=== PATIENT | female | born 1985 | race Caucasian/White ===

== ENCOUNTER 2025-03-29 17:58 | Emergency (ER) | payer OTHER, SELFPAY ==
[2025-03-29 18:11] VITALS: BP 130/91
[2025-03-29 18:36] LABS: Hematocrit 42.7 % (37.0-47.0); Hemoglobin 14.4 g/dL (12.0-16.0); Mean Corp Hgb Conc. 33.7 g/dL (33.0-37.0); Mean Corpuscular Volume 91.0 fL (81.0-99.0); Nucleated Red Blood Cells % 0 %; Platelet Count 413 10^3/uL (130-400); Red Cell Dist. Width 12.5 % (11.5-14.5)
[2025-03-29 18:59] LABS: HCG, Serum Qualitative Screen Negative
[2025-03-29 19:01] LABS: ALT (SGPT) 23 U/L (0-35); AST (SGOT) 17 U/L (14-36); Albumin 4.6 g/dl (3.5-5.0); Alkaline Phosphatase 156 U/L (38-126); Blood Urea Nitrogen 12 mg/dl (7-17); Calcium 9.6 mg/dl (8.4-10.2); Carbon Dioxide 24 mmol/L (22-30); Chloride 103 mmol/L (98-107); Glucose 140 mg/dl (70-99); Lipase 25 U/L (23-300); Potassium 4.3 mmol/L (3.5-5.1); Sodium 137 mmol/L (135-145); Total Protein 7.8 g/dl (6.3-8.2); eGFR > 60.00
--- NOTE | 2025-03-29 21:16 | ED.GENMED ---
History of Present Illness
<Celeste Paulino MD, Resident - Last Filed: 03/30/25 23:08>
General
Chief Complaint: Dizziness
Source: patient
Time Seen by Provider: 03/29/25 21:13
History of Present Illness
History of Present Illness:
40yo F without significant pmh who presents with subacute dizziness and n/v.
Pt reports that about 8 weeks ago she was diagnosed with a L ear infection. Sx were muffled hearing and sensation of fluid/pressure (less so pain in ear). When symptoms persisted for about 4 weeks, she was started on cefdinir. Had negative reaction,
switched to doxycycline. Doxycycline helped with sx somewhat. Finished 1 week course, sx recurred. Currently completing amoxicillin regimen, 3 days left of weeklong course. Feels it has been helping somewhat. Did not take abx today. Went on a plane
~3-4 weeks ago, which worsened pain in ear temporarily. Denies any fevers. She still feels the muffled sensation in L ear. L auricle/pinna are not tender, and she denies any L inner ear pain at this point.
Yesterday, she experienced an acute episode of painful, sharp, tingling across lower face/jaw bilaterally. This was not associated with any facial weakness. This was accompanied by diaphoresis. Self-resolved within 1 hr. Then, patient began to
experience dizziness/vertigo, which has persisted since then. Pt throws up whenever she moves; not specific to a certain type of movement or direction. She is unable to ambulate because she falls over to the side when she tries to walk. Does not
feel that room is spinning, she feels like her head is 'disconnected from body.' Her vision is blurry (cannot read), but denies diplopia. Has a headache, for which she took maxalt this am which helped somewhat. Her migraines typically do not have an
aura and only occur during her period. No personal or family hx of BPPV.
Past History
<Celeste Paulino MD, Resident - Last Filed: 03/30/25 23:08>
Past History
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
ED Past Surgical History: Gynecological (Ectopic ) and Other (Thyroid cyst removal)
Patient has exhibited threatening behavior?: No
Social History
Tobacco: Non-smoker
Alcohol: Occasional
Drug: None
Personal:
Living: with family
Employment: Employed
Review of Systems
<Celeste Paulino MD, Resident - Last Filed: 03/30/25 23:08>
Review of Systems
All Other Systems: ROS reviewed and negative except as documented in HPI and ROS
Phy Exam
<Celeste Paulino MD, Resident - Last Filed: 03/30/25 23:08>
General Physical Exam
General Presentation: moderate distress
General age: appears stated age
General Skin: warm and dry
General Mental: other (appears uncomfortable but able to answer Qs appropriately )
ENT Exam
Additional ENT: L ear otoscopy without visible bulging purulent TM
Course
<Celeste Paulino MD, Resident - Last Filed: 03/30/25 23:08>
Orders/Labs/Results
Orders:
Orders
03/29/25 18:15
Test Result ONCE
03/29/25 18:26
Complete Blood Count/With Diff Urgent
Comprehensive Metabolic Panel Urgent
HCG, Serum Qualitative Screen Urgent
Lipase Urgent
03/29/25 22:01
Diphenhydramine [Benadryl] 50 mg IM Q4HPRN PRN
03/29/25 22:03
Ondansetron HCl [Zofran] 4 mg PO Q8HPRN PRN
03/29/25 22:10
Diphenhydramine [Benadryl] 50 mg PO Q6HPRN PRN
03/29/25 22:45
CefTRIAXone [Rocephin] 1,000 mg IV NOW STA
Dexamethasone Sod Phosphate [Decadron] 10 mg IV NOW STA
Diphenhydramine [Benadryl] 25 mg IV NOW STA
Ondansetron Injectable [Zofran] 4 mg IV NOW STA
Abnormal Lab Results
03/29/25
18:26
WBC 11.4 H 10^3/uL
(4.8-10.8)
Plt Count 413 H 10^3/uL
(130-400)
Abs Immat Gran (auto) 0.1 H 10^3/uL
(0-0.05)
Absolute Neuts (auto) 9.4 H 10^3/uL
(1.4-6.5)
Immature Gran % 0.7 H %
(0-0.5)
Neutrophils % 82.6 H %
(42.2-75.2)
Lymphocytes % 12.6 L %
(20.5-51.1)
Glucose 140 H mg/dl
(70-99)
Alkaline Phosphatase 156 H U/L
(38-126)
03/29/25 18:26
03/29/25 18:26
Vital Signs
Initial and Last Documented VS:
Initial Vital Signs
Temp Pulse Resp BP Pulse Ox
98.4 F 78 16 130/91 98
03/29/25 18:11 03/29/25 18:11 03/29/25 18:11 03/29/25 18:11 03/29/25 18:11
Last Documented Vital Signs
Temp Pulse Resp BP Pulse Ox
98.4 F 75 16 128/85 97
03/29/25 18:11 03/29/25 23:45 03/29/25 23:45 03/29/25 23:00 03/29/25 23:45
<Arden Mcclellan DO - Last Filed: 03/29/25 23:07>
Orders/Labs/Results
Orders:
Orders
03/29/25 18:15
Test Result ONCE
03/29/25 18:26
Complete Blood Count/With Diff Urgent
Comprehensive Metabolic Panel Urgent
HCG, Serum Qualitative Screen Urgent
Lipase Urgent
03/29/25 22:01
Diphenhydramine [Benadryl] 50 mg IM Q4HPRN PRN
03/29/25 22:03
Ondansetron HCl [Zofran] 4 mg PO Q8HPRN PRN
03/29/25 22:10
Diphenhydramine [Benadryl] 50 mg PO Q6HPRN PRN
03/29/25 22:45
CefTRIAXone [Rocephin] 1,000 mg IV NOW STA
Dexamethasone Sod Phosphate [Decadron] 10 mg IV NOW STA
Diphenhydramine [Benadryl] 25 mg IV NOW STA
Ondansetron Injectable [Zofran] 4 mg IV NOW STA
Abnormal Lab Results
03/29/25
18:26
WBC 11.4 H 10^3/uL
(4.8-10.8)
Plt Count 413 H 10^3/uL
(130-400)
Abs Immat Gran (auto) 0.1 H 10^3/uL
(0-0.05)
Absolute Neuts (auto) 9.4 H 10^3/uL
(1.4-6.5)
Immature Gran % 0.7 H %
(0-0.5)
Neutrophils % 82.6 H %
(42.2-75.2)
Lymphocytes % 12.6 L %
(20.5-51.1)
Glucose 140 H mg/dl
(70-99)
Alkaline Phosphatase 156 H U/L
(38-126)
03/29/25 18:26
03/29/25 18:26
Vital Signs
Initial and Last Documented VS:
Initial Vital Signs
Temp Pulse Resp BP Pulse Ox
98.4 F 78 16 130/91 98
03/29/25 18:11 03/29/25 18:11 03/29/25 18:11 03/29/25 18:11 03/29/25 18:11
Last Documented Vital Signs
Temp Pulse Resp BP Pulse Ox
98.4 F 75 16 128/85 97
03/29/25 18:11 03/29/25 23:45 03/29/25 23:45 03/29/25 23:00 03/29/25 23:45
<Celeste Paulino MD, Resident - Last Filed: 03/30/25 23:08>
MDM/Problems Addressed
Differential Diagnosis Includes:
DDx: vestibular neuritis vs. meniere disease vs. otitis media w effusion vs. acute otitis media vs. BPPV
Most likely vestibular neuritis vs. otitis media with effusion. Not positional c/w BPPV, no pain c/w acute otitis media, no tinnitus or hearing loss c/w meniere.
Triggering potential prior ear infection may have triggered vestibular neuritis. Alternatively otitis media with effusion can cause vertigo and also takes ~12 weeks to self-resolve (& does not respond to abx, c/w patient trying 3 abx and having had
sx for 8 weeks). The patient's episode of lower face pain most likely c/w nerve pain in mandibular trigeminal nerve distribution, likely irritated by inflammation around ear near sensory root of mandibular branch of trigeminal nerve.
Unlikely to be central vertigo, given lack of motor/language sx, lack of diplopia, and lack of weakness (no focal neuro deficits); worsened by position change.
WBC elevatd slightly to 11.4 likely 2/2 inflammation rather than acute infection. Mildly elevated alk phos potentially c/w undiagnosed DM (glucose elevated 140). Hcg negative, r/o.
MDM/Problems Addressed:
Plan:
- Symptom management (for vestibular neuritis and/or vertigo): benadryl (25-50mg q4-6hr) & zofran (4mg q8-12hr)
- Will not extend abx course beyond current 3 days amox
- Typically watchful waiting for otitis media with effusion through 12 week yuan, with ENT consult if recurrent or worsening
- Refer for vestibular rehab outpatient
<Celeste Paulino MD, Resident - Last Filed: 03/30/25 23:08>
*Pulse Oximetry
SaO2: 98
Oxygen Mode of Delivery: Room air
Patient hypoxic: no
*Critical Care Note
Total Time (30-74mins, 75-104mins- exclusive of procedures): Not Applicable
<Celeste Paulino MD, Resident - Last Filed: 03/30/25 23:08>
Update Note
Update Note:
Started zofran 4mg q8hr PRN and benadryl 50mg q6hr PRN
ED Attending Note
<Celeste Paulino MD, Resident - Last Filed: 03/30/25 23:08>
-
Portions of this chart may have been created with voice recognition software.� Occasional wrong word or��sound alike� substitutions may have occurred due to the inherent limitations of voice recognition software.
<Arden Mcclellan, DO - Last Filed: 03/29/25 23:07>
ED Attending Note
Patient seen and examined by attending physician: Yes
I performed a history and physical exam of patient and discussed management with resident, I reviewed resident's note and agree with documented findings and plan of care.: Yes
ED Attending Note:
Seen with resident examined independently 40-year-old female presents with nausea vomiting is taking her second course of antibiotics for left otitis no symptoms while at rest symptoms are worse with movement no mastoid tenderness no rash no fever
on exam looks like her left TM is red and retracted with an effusion
Labs are noted will give IV steroids antiemetics dose of IV antibiotics consideration for nonurgent referral DVT
Discharge Plan
Departure
Patient Disposition: Home (Routine Discharge)
Date of Disposition: 03/29/25
Time of Disposition: 23:27
Patient with high blood pressure during this ER visit?: No
Discharge Problem:
Vomiting, Ear infection
Instructions: Dizziness
Prescriptions:
New
methylprednisolone [Medrol (Shay)] 4 mg tablets,dose pack
See Rx Instructions .ROUTE .COMPLEX Qty: 21 0RF
Rx Instructions:
for 6 days
ondansetron 4 mg tablet,disintegrating
4 mg PO Q8H PRN (Reason: nausea and vomiting) Qty: 14 0RF
No Action
rizatriptan [Maxalt] 10 MG tablet
10 mg PO BID PRN (Reason: headache) Qty: 20 0RF
Referrals:
Guillaume España DO [Family Provider, Family Practice]
Matheus Nuñez MD [Active, Otology] - Next open appointment
Interventions
Interventions:
*Risk Screen - Suicide Last Done: 03/29/25 18:11
*General Assessment Last Done: 03/29/25 18:11
*Neglect/Abuse Screening Last Done: 03/29/25 18:11
*ED- Fall Risk Assessment Last Done: 03/29/25 23:37
*ED COVID-19 Vaccine History Last Done: 03/29/25 22:48
*ED Influenza Vaccine History Last Done: 03/29/25 22:48
*Nursing Disposition Last Done: 03/30/25 00:08
ED- Neurological Assessment Last Done: 03/29/25 22:01
ED Swallowing Screen Last Done: 03/29/25 23:36
Discharge Date and Time
Discharge Date/Time: 03/30/25 00:08
Print Language: ESTONIAN
[2025-03-29 22:00] VITALS: BP 131/85
[2025-03-29] MEDS: ZOFRAN 4 MG IV (22:56)
[2025-03-29] MEDS: DECADRON 10 MG IV (22:56)
[2025-03-29] MEDS: ROCEPHIN 1000 MG IV (22:56)
[2025-03-29] MEDS: BENADRYL 25 MG IV (22:57)
[2025-03-29 23:00] VITALS: BP 128/85
[2025-03-29 23:10] VITALS: BMI 33.7
== END 2025-03-30 00:08 | disposition home or self-care (01) ==
LOC: EMR 17:58
PROVIDERS: Emergency Medicine; EMERGENCY PHYSICIAN Emergency Medicine; FAMILY PHYSICIAN Family Medicine
DX: H66.92 Otitis media, unspecified, left ear (principal); R11.2 Nausea with vomiting, unspecified
CPT/HCPCS: 96374; 96375; 99284; 80053; 83690; 84703; 85025

== ENCOUNTER 2025-04-03 08:31 | Inpatient (IN) | payer OTHER, SELFPAY ==
[2025-03-31 21:04] VITALS: BP 154/115
[2025-03-31 21:49] LABS: Hematocrit 45.0 % (37.0-47.0); Hemoglobin 15.6 g/dL (12.0-16.0); Mean Corp Hgb Conc. 34.7 g/dL (33.0-37.0); Mean Corpuscular Volume 90.5 fL (81.0-99.0); Nucleated Red Blood Cells % 0 %; Platelet Count 520 10^3/uL (130-400); Red Cell Dist. Width 12.3 % (11.5-14.5)
[2025-03-31] MEDS: NSS 1000 IV (22:16)
[2025-03-31] MEDS: ZOFRAN 4 MG IV (22:16)
[2025-03-31 22:20] LABS: ALT (SGPT) 18 U/L (0-35); AST (SGOT) 14 U/L (14-36); Albumin 4.8 g/dl (3.5-5.0); Alkaline Phosphatase 145 U/L (38-126); Blood Urea Nitrogen 23 mg/dl (7-17); Calcium 10.2 mg/dl (8.4-10.2); Carbon Dioxide 26 mmol/L (22-30); Chloride 102 mmol/L (98-107); Glucose 104 mg/dl (70-99); Potassium 4.2 mmol/L (3.5-5.1); Sodium 136 mmol/L (135-145); Total Protein 8.5 g/dl (6.3-8.2); eGFR > 60.00
[2025-03-31 22:27] VITALS: BP 117/82
[2025-03-31 23:00] VITALS: BP 122/81
--- NOTE | 2025-03-31 23:17 | ED.GENMED ---
History of Present Illness
General
Chief Complaint: Dizziness
Source: patient and previous hospital records (ED visit 2 days ago for similar complaint)
Exam Limitations: none
Time Seen by Provider: 03/31/25 22:32
Nursing documentation reviewed up to this point in time: agreed with
History of Present Illness
History of Present Illness:
The patient is a 40-year-old female with a history of recurrent ear issues, who presented with persistent dizziness and headache. The ear pain started over a month ago and has persisted despite several rounds of antibiotics. The symptoms worsened
after air travel a month ago. The patient recently completed a course of amoxicillin and visited the emergency department 2 days ago where she developed abrupt onset of dizziness, nausea and vomiting the previous day. She received fluids and
medications, including steroids, which did not significantly improve her condition.
Currently, the patient reports improvement in ear pain and fullness but continues to experience severe dizziness, which intensifies with movement. She was started on a Medrol dose pack (methylprednisolone) and ondansetron, an antiemetic, with no
significant relief so far.
The patient also reports a frontal headache that developed recently. There is no fever reported. She has a history of migraines typically related to her menstrual cycle, for which she takes Maxalt, but describes this headache as different. She
admits to nasal congestion. [id number] medications have not been tried yet.
Laboratory studies from 2 days ago revealed mildly elevated white blood cell count of 11.4. Mildly elevated platelet count of 413. Normal H&H.
Chemistries were unremarkable save for mildly elevated alkaline phosphatase of 156. Random glucose 140. hCG is negative.
Past History
Past History
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 She got tested due to mother with history of factor V deficiency. She is maintained on
low-dose aspirin.) and Other (ectopic)
ED Past Surgical History: Gynecological (Ectopic ) and Other (Thyroid cyst removal)
Patient has exhibited threatening behavior?: No
Social History
Tobacco: Non-smoker
Alcohol: Occasional
Drug: None
Personal:
Living: with family
Employment: Employed
Family History
Family History: Other (Mother with history of factor V deficiency. Patient had routine testing and states she was positive-unclear if she is positive for factor V trait versus deficiency.)
Phy Exam
Physical Exam
Physical Exam:
GENERAL: 40-year-old overweight woman appears her stated age. Awake and alert, pleasant, overall appears in no acute distress. Mild nasal, stuffy voice is noted. Easily communicative. Afebrile. Initial BP elevated, upon recheck has normalized
122/81.
EYE: pupils equal and reactive. Extraocular muscles intact. Mild right lateral gaze nystagmus. Test of skew is negative. Head impulse negative. Anicteric
NECK: Supple, nontender, no meningismus, no significant adenopathy.
ENT: posterior pharynx is clear, oral mucosa is moist. TMs retracted bilaterally with minimal erythema superiorly. No appreciable effusion. Nares patent with mildly boggy turbinates without mucopus..
CARDIAC: Regular rate and rhythm. no murmur.
LUNGS: Clear breath sounds bilaterally, no acute respiratory distress, no wheezes/rales/rhonchi
ABDOMEN: Soft, nondistended, without focal tenderness, normoactive BS.
NEUROLOGICAL: Alert and oriented x3, no focal neuro deficits. Reproducible vertigo with rapid rotation of the head.
SKIN: Warm and dry, normal color, skin intact. No rash.
MUSCULOSKELETAL: No C/C/E. peripheral pulses are full and equal b/l. No palpable tenderness.
PSYCH: Normal and appropriate interaction.
Course
Orders/Labs/Results
Orders:
Orders
03/31/25 21:42
Complete Blood Count/With Diff Urgent
Comprehensive Metabolic Panel Urgent
03/31/25 22:13
Ondansetron Injectable [Zofran] 4 mg IV NOW STA
03/31/25 22:16
0.9% Sodium Chloride 1000 ml [Nss] 1,000 ml IV BOLUS
03/31/25 23:10
Meclizine [Antivert] 25 mg PO NOW STA
03/31/25 23:14
CT Head W/wo Iv Contrast Urgent
Comment:
Reason For Exam: intractable dizziness, N, headache
04/01/25 00:35
Meclizine [Antivert] 25 mg PO NOW STA
04/01/25 01:39
Ambulate Patient-Treatment ONCE
04/01/25 01:49
0.9% Sodium Chloride 1000 ml [Nss] 1,000 ml IV 125 mls/hr
Abnormal Lab Results
03/31/25
21:42
WBC 16.2 H 10^3/uL
(4.8-10.8)
MCH 31.4 H pg
(27.0-31.0)
Plt Count 520 H D 10^3/uL
(130-400)
Abs Immat Gran (auto) 0.1 H 10^3/uL
(0-0.05)
Absolute Neuts (auto) 12.9 H 10^3/uL
(1.4-6.5)
Absolute Monos (auto) 0.7 H 10^3/uL
(0.1-0.6)
Neutrophils % 79.8 H %
(42.2-75.2)
Lymphocytes % 15.4 L %
(20.5-51.1)
BUN 23 H mg/dl
(7-17)
Glucose 104 H mg/dl
(70-99)
Alkaline Phosphatase 145 H U/L
(38-126)
Total Protein 8.5 H g/dl
(6.3-8.2)
03/31/25 21:42
03/31/25 21:42
Vital Signs
Blood pressure: 122/81
Initial and Last Documented VS:
Initial Vital Signs
Temp Pulse Resp BP Pulse Ox
98.1 F 82 19 154/115 95
03/31/25 21:04 03/31/25 21:04 03/31/25 21:04 03/31/25 21:04 03/31/25 21:04
Last Documented Vital Signs
Temp Pulse Resp BP Pulse Ox
98.1 F 64 12 122/81 94
03/31/25 21:04 04/01/25 00:45 04/01/25 00:45 04/01/25 00:00 04/01/25 00:45
MDM/Problems Addressed
Differential Diagnosis Includes:
The Differential Diagnosis includes, in no particular order and is not limited to:
- Vestibular neuritis
- Labyrinthitis
- Migraine variant
- Sinusitis
- Chronic otitis media
- Meniere�s disease
- Tension-type headache
- Viral infection
- Allergic rhinitis
- TMJ dysfunction
MDM/Problems Addressed:
Acute, persistent dizziness with nausea and vomiting that began 3 days ago.
Chronic otitis media that began 2 months ago.
Overall nontoxic in appearance. Afebrile.
Thus far no improvement with IV along with oral steroids.
Otitis media has improved, appears to have resolved and on exam note of bilateral eustachian tube dysfunction with TM retractions but no evidence of significant effusion nor otitis media.
She does have a mild nasal, stuffy voice and admits to some nasal congestion, concern for an element of chronic sinusitis exacerbating/cause for dizziness, cause for vestibular neuritis.
She does complain of a frontal headache, albeit denies severe pain, headache is different from her typical migraines and thus to consider migraine variant as cause for dizziness. Other consideration is mass lesion.
Will check CT of the head.
Labs show uptrend in white blood cell count likely related to IV and oral steroids. There is also note of uptrend in platelet count.
Mild prerenal azotemia with normal electrolytes.
Alkaline phosphatase 145, trending down.
Feeling improved after IV fluids and an IV dose of Zofran.
Will give an oral dose of Antivert and check CT of the head.
Chronic conditions affecting care:
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
*Radiology
Radiology exam reviewed: radiology read reviewed
*Pulse Oximetry
SaO2: 95
Oxygen Mode of Delivery: Room air
Patient hypoxic: no
*Planning Intern Interpretation
Rate: normal
Interpretation: normal
Rhythm: sinus
*Critical Care Note
Total Time (30-74mins, 75-104mins- exclusive of procedures): Not Applicable
Update Note
Update Note:
01:55
Despite IV fluids, Zofran, 2 doses of Antivert, patient continues with significant vertiginous symptoms most noted when attempting to stand. Upon standing she promptly loses her balance, lists to the left with accompanying nausea.
Due to intractable vertigo accompanied with intractable nausea and vomiting, severe unsteadiness upon standing, patient will require acute hospitalization for further evaluation, continued IV fluids.
ED Attending Note
-
Portions of this chart may have been created with voice recognition software.� Occasional wrong word or��sound alike� substitutions may have occurred due to the inherent limitations of voice recognition software.
Discharge Plan
Departure
Patient Disposition: Admit
Date of Disposition: 04/01/25
Time of Disposition: 01:56
Admit to: Med/Surg
Admit to doctor: [facility]
Presentation/result/management discussed w/ accepting MD/DO: Hospitalist
Condition: Fair
Discharge Problem:
Intractable vertigo, Acute onset of severe vertigo
Prescriptions:
No Action
rizatriptan [Maxalt] 10 MG tablet
10 mg PO BID PRN (Reason: headache) Qty: 20 0RF
methylprednisolone [Medrol (Shay)] 4 mg tablets,dose pack
See Rx Instructions .ROUTE .COMPLEX Qty: 21 0RF
Rx Instructions:
for 6 days
ondansetron 4 mg tablet,disintegrating
4 mg PO Q8H PRN (Reason: nausea and vomiting) Qty: 14 0RF
Referrals:
Guillaume España, DO [Family Provider, Family Practice]
Interventions
Interventions:
*Risk Screen - Suicide Last Done: 03/31/25 21:04
*General Assessment Last Done: 03/31/25 21:04
*Neglect/Abuse Screening Last Done: 03/31/25 21:04
*ED- Fall Risk Assessment Last Done: 04/01/25 00:54
*ED COVID-19 Vaccine History Last Done: 04/01/25 00:54
*ED Influenza Vaccine History Last Done: 04/01/25 00:54
ED- Neurological Assessment Last Done: 03/31/25 21:49
ED- Cardiac Assessment Last Done: 03/31/25 21:49
ED Swallowing Screen Last Done: 04/01/25 00:16
Discharge Date and Time
Print Language: LITHUANIAN
[2025-03-31] MEDS: ANTIVERT 25 MG PO (23:30)
[2025-04-01] VITALS (11 sets, daily range): BP systolic 112–170; BP diastolic 72–88; PULSE 88–96; BMI 33.9; BMI 36.4
[2025-04-01] MEDS: ANTIVERT 25 MG PO ×2 (00:49→08:22)
[2025-04-01] MEDS: NSS 1000 IV (01:50)
--- NOTE | 2025-04-01 03:17 | HPS.HSE ---
Family Physician
-
Family Physician: Guillaume España
Chief Complaint
-
Dizziness, N/V
History of Present Illness
Patient is a 40y F with PMH significant for menstrual migraines and Factor V Leiden genetics who presents to ED complaining of dizziness and nausea. Patient developed L ear pain / fullness about 8 weeks ago. She has been followed by her PCP
since that time and has been on cefdinir, doxycycline and Augmentin over that time. Patient states that her hearing is a bit 'muffled' in the L ear - but there is no further pain, sinus pressure, sore throat, etc.
She developed dizziness sensation on Saturday evening. She has had unsteady gait since that time with persistent nausea and multiple episodes of non-bloody emesis.
Patient denies any room spinning sensation. She has not fallen / injured herself and has not lost consciousness.
She was seen in the ED on Saturday, treated with meclizine and discharged with Medrol pack.
She states that her symptoms have not significantly changed since that time and she returns to the ED this evening for further evaluation.
Patient has persistent symptoms in the ED this evening despite medications. She notes that she falls towards the right each time she stands.
Medical History
Past Medical History
Past Medical History: Reports Other
Additional Past Medical History:
Migraine Headaches (menstrual)
Obesity
Anxiety / Depression
Factor V Leiden (? homo / heterozygous) - No personal history of VTE
Past Surgical History: Reports Other
Additional Past Surgical History:
Thyroid Cyst Excision
Ectopic
Social History
Tobacco: Non-smoker
Alcohol: Occasional
Drug: None
Family History
Family History: Other (Mother: Factor V Leiden / VTE)
Allergies / Home Medications
Allergies reflects when Allergies were last updated in [facility] [facility].
Home Medications with original date entered in [facility] [facility]
Allergy/Medication List:
Allergies
Allergy/AdvReac Type Severity Reaction Status Date / Time
ciprofloxacin (From Cipro) Allergy Unknown Verified 03/29/25 18:14
clindamycin Allergy Unknown Verified 03/29/25 18:14
codeine Allergy Unknown Verified 03/29/25 18:14
metronidazole (From Metrogel) Allergy Unknown Verified 03/29/25 18:14
morphine Allergy Unknown Verified 03/29/25 18:14
Penicillins Allergy Unknown Verified 03/29/25 18:14
Home Medications
methylprednisolone 4 mg tablets in a dose pack (Medrol (Shay)) See Rx Instructions PO .COMPLEX #21 ea 03/29/25
ondansetron 4 mg disintegrating tablet 4 mg PO Q8H PRN nausea and vomiting #14 tabs 03/29/25
aspirin 81 mg tablet 81 mg PO DAILY 04/01/25
escitalopram oxalate 10 mg tablet (Lexapro) 10 mg PO DAILY 04/01/25
Review of Systems
-
History Source: Patient
A 12 point ROS was completed and negative except as noted: Yes
Constitutional: Reports Fatigue; Denies Fever or Chills
EENT: Reports Other (decreased hearing on the L); Denies Sore Throat or Runny Nose
Respiratory: Denies Cough or Trouble Breathing
Cardiac: Denies Chest Pain or Palpitations
Abdomen/GI: Reports Nausea and Vomiting; Denies Abdominal Pain or Diarrhea
: Denies Dysuria or Frequency
Musculoskeletal: Denies Joint Pain or Edema
Neurological: Reports Dizzy; Denies Headache, Weakness or Numbness
Psych: Denies Depression or Anxiety
Physical Exam
Vital Signs
Vital Signs
Temp Pulse Resp BP Pulse Ox
98.1 F 71 10 122/84 95
03/31/25 21:04 04/01/25 02:30 04/01/25 01:54 04/01/25 02:00 04/01/25 02:30
Physical Exam
General: Other (40y F in mild distress due to nausea.)
HEENT: Moist mucous membranes, PERRLA and Other (L TM with some erythema compared to the R.)
Respiratory: Clear; No Wheezes, Rales or Rhonchi
Cardiac: S1/S2 and Regular Rhythm; No Murmur
GI: Soft, Non Tender, Non Distended and Normal Bowel Sounds
Musculoskeletal: No Clubbing, No Cyanosis and No Edema
Neuro: AO x 3 and Other (Ataxia / falls or leans towards R with standing or attempting to ambulate. Strength and sensation is intact / symmetric x 4 extremities.)
Laboratory Results
-
03/31/25 21:42
03/31/25 21:42
Laboratory Results
Total Bilirubin 0.5 mg/dl (0.2-1.3) 03/31/25 21:42
AST 14 U/L (14-36) 03/31/25 21:42
ALT 18 U/L (0-35) 03/31/25 21:42
Alkaline Phosphatase 145 U/L (38-126) H 03/31/25 21:42
Impression/Plan
-
A/P: Patient is a 40y F with PMH significant for migraine headaches who presents to ED complaining of persistent dizziness / ataxia and N/V.
Vertigo / Ataxia
Persistent Left Otitis Media
- Observe overnight for further evaluation and treatment.
- CT head in the ED was unremarkable.
- Supportive care with IVFs, antiemetics, meclizine, Valium, etc.
- PT / Vestibular evaluation.
- Hold further steroids for now.
- Observe off any additional abx (has had three separate courses over the past 8 weeks).
- Patient states that pain, sinus pressure, etc has resolved.
- ENT evaluation for additional recommendations.
Leukocytosis
- Likely due to steroids.
- Monitor for improvement off of further steroids.
Migraine Headaches
- Patient reports menstrual migraines. No current symptoms c/w her prior episodes.
- Monitor for any changes.
Factor V Leiden
DVT Prophylaxis
- No personal h/o VTE.
- Continue daily ASA.
- Lovenox for prophylaxis during hospital stay.
Code Status: Full
[2025-04-01] MEDS: TYLENOL 650 MG PO (04:49)
[2025-04-01] MEDS: ZOFRAN 4 MG IV ×2 (04:54→10:52)
--- NOTE | 2025-04-01 05:07 | PTCARENOTE ---
Pt recieved from ED via stretcher at 0400. Pt AAOx3, VSS, and able to ambulate into room with assistance. Pt complains of 7/10 SMITH and dizziness. See MAR. Pt receptive to room and call allen. Pt bed in lowest position and call allen within reach. Pt
educated on importance of call allen usage, pt relays understanding. Bed alarm placed and plugged in. Will continue with current plan of care.
[2025-04-01] MEDS: ASPIR LOW (ENTERIC COATED) 81 MG PO (07:41)
[2025-04-01] MEDS: LEXAPRO 10 MG PO (07:42)
[2025-04-01 08:06] LABS: Blood Urea Nitrogen 21 mg/dl (7-17); Calcium 9.0 mg/dl (8.4-10.2); Carbon Dioxide 28 mmol/L (22-30); Chloride 106 mmol/L (98-107); Estimated Creatinine Clearance 116 ml/min; Glucose 88 mg/dl (70-99); Hematocrit 42.0 % (37.0-47.0); Hemoglobin 13.8 g/dL (12.0-16.0); Mean Corp Hgb Conc. 32.9 g/dL (33.0-37.0); Mean Corpuscular Volume 95.2 fL (81.0-99.0); Platelet Count 400 10^3/uL (130-400); Red Cell Dist. Width 12.3 % (11.5-14.5); Sodium 141 mmol/L (135-145); eGFR > 60.00
[2025-04-01 08:23] LABS: Potassium 3.8 mmol/L (3.5-5.1)
--- NOTE | 2025-04-01 09:14 | W.CON.OTO ---
Otolaryngology Consult
Consult
Date/Time Consultation Requested: 04/01/2025 0330
Date/Time Consultation Performed: 04/01/2025 0818
Requesting Provider: Dr. Stock
Performing Provider: Dr. Gomez
Reason for Consultation: Vertigo
Chief Complaint
Vertigo
History of Present Illness
nAni is a 40yo woman who works for [employer] and presented to the ED twice within the past week with vertigo. She had been dealing with a left AOM over the past 8 weeks and had been treated with 3 courses of abx. She feels her otalgia and URI
sx are resolved now, but on Saturday03/28/25 she developed acute onset vertigo described as an intense dysequilibrium sensation with inability to stand and walk steadily. This is associated with right head/facial pain, nausea and vomiting. No room
spinning sensation. No hearing changes, tinnitus or otalgia. She was seen in ED on 03/29/25 for this and treated with meclizine and steroids. She took 2 doses of steroids. There was no improvement yet so she returned ovn and was admitted for further
management. CT head was negative for acute stroke. She is off abx now. ENT consulted for eval and management recommendations.
At time of eval this AM, she is still feeling nauseous. No new otologic symptoms. This has never happened before. No known migraine history. No prior major ear or heead or neck surgery. No recent known sick contacts or substantial travel.
Medical History
Past Medical History: None
Past Surgical History: None
Patient Allergies:
Allergies
Allergy/AdvReac Type Severity Reaction Status Date / Time
ciprofloxacin (From Cipro) Allergy Unknown Verified 03/29/25 18:14
clindamycin Allergy Unknown Verified 03/29/25 18:14
codeine Allergy Unknown Verified 03/29/25 18:14
metronidazole (From Metrogel) Allergy Unknown Verified 03/29/25 18:14
morphine Allergy Unknown Verified 03/29/25 18:14
Penicillins Allergy Unknown Verified 03/29/25 18:14
Home Medications / Current Medications:
�Medication �Instructions �Recorded
aspirin 81 mg tablet 81 mg PO DAILY 04/01/25
escitalopram oxalate 10 mg tablet 10 mg PO DAILY 04/01/25
(Lexapro)
Physical Exam
Vitals / Labs:
Vital Signs
Temp 98 F 04/01/25 07:00
Temp route: Oral 04/01/25 07:00
Pulse 62 04/01/25 07:00
Resp Rate 17 04/01/25 07:00
Blood pressure 149/72 04/01/25 07:00
Blood pressure extremity used: Left upper arm 04/01/25 07:00
Position: Lying 04/01/25 07:00
MAP (cuff-Pat Monitor) 92 04/01/25 03:00
SaO2 99 04/01/25 07:00
Oxygen Mode of Delivery Room air 04/01/25 07:00
Can the patient verbally communicate their pain? Yes 04/01/25 05:49
Pain scale rating: Asleep 04/01/25 05:49
Actual Weight 105.415 kg 04/01/25 04:07
Body Mass Index (BMI) 36.4 04/01/25 04:07
Lab Results
04/01/25 07:10
04/01/25 07:10
Exam:
Otolaryngology-specialty specific physical exam: NAD. Able to sit in bed and turn head left and right. External ears and EAC normal. B/l TMI. No effusion, normal landmarks. Hearing grossly intact.
Assessment / Plan
Anni is a 40yo woman with acute onset vertigo.
There is an unclear etiology at this time, but would favor vestibular neuritis vs vestibular migraine. I recommend an MRI brain and IACs w/ gadolinium for evaluation of the brain and inner ear structures. Would expect CN 8 enhancement with VN but
not VM. Would d/c meclizine as it should not be used for more than 3 consecutive days since onset. Continue with antiemetics. I recommend evaluation with Neurology for consideration of migraine treatment. Ca consider a diagnostic and therapeutic
trial of rescue sumatriptan. Agree with no abx and Vestibular therapy evaluation to help ensure she can ambulate safely. I recommend high dose steroids starting with 60mg prednisone PO once daily x 5 days, followed by a taper of 50mg x1d, 40mg x1d,
30mg x1d, 20mg x1d and 10mg x1d. I have left our information for her to contact us for followup as an outpatient within 1-2 weeks of hospital discharge.
Data Reviewed
Radiology: Image Personally Visualized and interpreted and Discussed with Patient
CT Scan: Image Personally Visualized and interpreted (No acute intracranial pathology.)
Lab Data: Labs Reviewed by me (WBC 10.5 down from 16 suggesting the leukocytosis may have been from steroids. Hgb 13.8.)
[2025-04-01] MEDS: LR 1000 IV ×2 (09:51→19:51)
--- NOTE | 2025-04-01 11:31 | CM ---
Patient seen bedside, initial assessment completed. Patient is a 40y F with PMH significant for menstrual migraines and Factor V Leiden genetics who presents to ED complaining of dizziness and nausea.
Patient resides w/ spouse and their 2 kids in a 2STH, 4 steps to enter from the front and 2 steps in the back. Patient is independent in all areas. No DME, no therapy hx.
Address, point of contact and insurance verified
PCP: Guillaume España
Pharmacy: [facility]
Patient admitted under obs services. OOBS form verbally reviewed, copy provided, copy on chart
PT evaluation ordered
Plan: Home, no needs
--- NOTE | 2025-04-01 11:34 | W.PN.HOSP.TC ---
Today's Communication/Plan
-
DC meclizine
Continue with IV fluids
Prednisone started
MRI of the brain
Assessment / Plan
Assessment / Plan
General: in bed, not in distress
HEENT: Moist mucous membranes, PERRLA
Respiratory: Clear; No Wheezes, Rales or Rhonchi
Cardiac: S1/S2 and Regular Rhythm; No Murmur
GI: Soft, Non Tender, Non Distended and Normal Bowel Sounds
Musculoskeletal: No Clubbing, No Cyanosis and No Edema
Neuro: AO x 3, EOMI, did not assess gait as feeling dizzy.
A/P: Patient is a 40y F with PMH significant for migraine headaches who presents to ED complaining of persistent dizziness / ataxia and N/V.
Acute onset vertigo / Ataxia likely secondary to vestibular neuritis versus vestibular migraine
- CT head in the ED was unremarkable.
- Supportive care with IVFs, antiemetics, Valium, etc.
- PT / Vestibular evaluation.
- Observe off any additional abx (has had three separate courses over the past 8 weeks).
- ENT correspondence to recommend an MRI of the brain with contrast and internal auditory canal visualization too.
- ENT recommends prednisone which is started. DC meclizine
- If with persistent nausea can consider Valium
- If no improvement may need neurology input
Leukocytosis
- Likely due to steroids.
- Resolved
Migraine Headaches
- Patient reports menstrual migraines. Having intermittent headaches
- Monitor for any changes.
Factor V Leiden
DVT Prophylaxis
- No personal h/o VTE.
- Continue daily ASA.
- Lovenox for prophylaxis during hospital stay.
Code Status: Full
Anticipated Discharge: 24 - 48 hours
Subjective/Interval History
-
Date of Service: April 01, 2025
states of feeling dizzy
intermittent nausea and vomiting
Objective Data
-
Labs:
Laboratory Results
04/01/25
07:10
WBC 10.5
Hgb 13.8
Hct 42.0
Plt Count 400 D
Sodium 141
Potassium 3.8
Chloride 106
Carbon Dioxide 28
BUN 21 H
Creatinine 0.8
Glucose 88
Calcium 9.0
Vital Signs:
Vital Signs
Temp Pulse Resp BP Pulse Ox
98 F 62 17 149/72 99
04/01/25 07:00 04/01/25 07:00 04/01/25 07:00 04/01/25 07:00 04/01/25 07:00
I&O
03/31/25 04/01/25 04/02/25
06:59 06:59 06:59
Intake Total 250 / 250
Balance 250 / 250
[2025-04-01] MEDS: DELTASONE 50 MG PO (12:01)
[2025-04-01] MEDS: LOVENOX 40 MG SC (18:03)
[2025-04-01] MEDS: VALIUM INJECTION 2 MG IV (19:52)
[2025-04-02] MEDS: LR 1000 IV (03:52)
[2025-04-02 07:00] VITALS: BP 132/80
[2025-04-02] MEDS: LEXAPRO 10 MG PO (08:14)
[2025-04-02] MEDS: ASPIR LOW (ENTERIC COATED) 81 MG PO (08:14)
[2025-04-02] MEDS: DELTASONE 50 MG PO (08:14)
--- NOTE | 2025-04-02 10:46 | W.PN.ENT ---
Today's Communication
-
patient and patient's hospitalist
Impression / Plan
-
40yo woman with acute onset vertigo. At this point, I favor vestibular neuritis over vestibular migraine based on symptoms and time course.
- MRI brain and IACs w/ gadolinium pending
- would continue steroids, antiemetics and supportive care
- continue PT
- Recommend Neurology evaluation
- Recommend Vestibular therapy eval
Please contact ENT with questions or concerns
Subjective Data
-
Patient seen earlier this morning. Feeling marginally better today. She has less nausea. Walking better but still leaning toward the right. No new otologic symptoms. No headache. Has some sound sensitivity.
Objective Data
-
Vital Signs
Temp Pulse Resp BP Pulse Ox
97.5 F 59 16 132/80 99
04/02/25 07:00 04/02/25 07:00 04/02/25 07:00 04/02/25 07:00 04/02/25 07:00
Intake & Output
04/01/25 04/02/25 04/03/25
06:59 06:59 06:59
Intake:
Oral fluids 240 / 240
IV fluids (Total) 250 / 250 1500 / 1500
Other:
Number of approximated MODERATE 1
amounts of urine
Lab Results
04/01/25 07:10
04/01/25 07:10
Calcium 9.0 mg/dl (8.4-10.2) 04/01/25 07:10
Total Bilirubin 0.5 mg/dl (0.2-1.3) 03/31/25 21:42
AST 14 U/L (14-36) 03/31/25 21:42
ALT 18 U/L (0-35) 03/31/25 21:42
Alkaline Phosphatase 145 U/L (38-126) H 03/31/25 21:42
Physical Exam
-
Otolaryngology-specialty specific physical exam: NAD, resting comfortably in bed. Ears and neck normal.
[2025-04-02] MEDS: VALIUM INJECTION 2 MG IV ×2 (11:04→17:57)
--- NOTE | 2025-04-02 11:26 | W.PN.HOSP.TC ---
Today's Communication/Plan
-
Prednisone/valium
stop IVF
neuro input
MRI brain pending
Assessment / Plan
Assessment / Plan
General: in bed, not in distress
HEENT: Moist mucous membranes, PERRLA
Respiratory: Clear; No Wheezes, Rales or Rhonchi
Cardiac: S1/S2 and Regular Rhythm; No Murmur
GI: Soft, Non Tender, Non Distended and Normal Bowel Sounds
Musculoskeletal: No Clubbing, No Cyanosis and No Edema
Neuro: AO x 3, EOMI, did not assess gait as feeling dizzy.
Psych-anxious
A/P: Patient is a 40y F with PMH significant for migraine headaches who presents to ED complaining of persistent dizziness / ataxia and N/V.
Acute onset vertigo / Ataxia likely secondary to vestibular neuritis versus vestibular migraine
- CT head in the ED was unremarkable.
- Supportive care with antiemetics, Valium, etc. IVF stopped as orthostatics negative. Monitor po intake
- PT / Vestibular evaluation.
- Observe off any additional abx (has had three separate courses over the past 8 weeks).
- ENT correspondence to recommend an MRI of the brain with contrast and internal auditory canal visualization too.
- ENT recommends prednisone 50mg taper regimen. DC meclizine
- valium prn
- Neurology input requested
Leukocytosis
- Likely due to steroids.
Migraine Headaches
- Patient reports menstrual migraines. Having intermittent headaches
- Monitor for any changes.
Factor V Leiden
DVT Prophylaxis
- No personal h/o VTE.
- Continue daily ASA.
- Lovenox for prophylaxis during hospital stay.
Code Status: Full
PT following
d/w with ENT
Anticipated Discharge: 24 - 48 hours
Subjective/Interval History
-
Date of Service: April 02, 2025
anxious and emotional this morning. crying earlier
remains with dizziness
worked with PT earlier today
Objective Data
-
Vital Signs:
Vital Signs
Temp Pulse Resp BP Pulse Ox
97.5 F 59 16 132/80 99
04/02/25 07:00 04/02/25 07:00 04/02/25 07:00 04/02/25 07:00 04/02/25 07:00
I&O
04/01/25 04/02/25 04/03/25
06:59 06:59 06:59
Intake Total 250 / 250 1740 / 1740
Balance 250 / 250 1740 / 1740
Data Reviewed
-
Total Time Spent with Patient (in minutes): 55
--- NOTE | 2025-04-02 11:30 | CON.NEURO4 ---
Addendum entered and electronically signed by Jaylen Sharpe MD 04/02/25 13:53:
Studies reviewed.
I have personally examined the patient. I reviewed and agree with the PINMAKER's Note.
My addenda:
Awake, alert, interactive. No acute distress.
Speech intact.
Follows 2-step requests w/o difficulty. No tremor.
Extra-ocular movements grossly intact.
Facial movements full and symmetric. Hearing intact to normal conversational volume.
Normal UE movements bilaterally.
Neck: full ROM.
Chest: no dyspnea
Heart: no JVD
Ext: (-) Clubbing, (-) Cyanosis, (-) Edema
IMPRESSIONS/RECOMMENDATIONS:
Abrupt onset of dizziness approximately 2 months after the onset of presumed left inner ear infection in a patient with menstrual migraine and current statements of aphasia, difficulty with sensory changes in bilateral upper and lower extremities as
well as a sense of respiratory abnormality. In a patient with factor V Leiden abnormality, the differential diagnosis includes acute ischemic stroke as well as multiple sclerosis and vestibular neuritis. Less likely, migraine with aura
Check MRI of brain with and without contrast as currently planned
Continue aspirin 81 mg with consideration of the addition of clopidogrel if there is evidence of acute ischemic stroke by MRI
Rehabilitation evaluations and treatment
Consider use of prochlorperazine for nausea and headache
Check blood work for potential metabolic causes for some of the patient's symptomatology
Agree with continuance of prednisone for symptomatic relief and diazepam also as symptomatic relief for now
D/W patient
All questions answered.
Will continue to follow patient.
Original Note:
Documented by User: Janeth Ronquillo NP 04/02/25 12:29
Consultation - Neurology 4
-
CONSULTING PHYSICIAN: Jaylen Sharpe MD
REFERRING PHYSICIAN: Hospitalists/Dr. Collado
DICTATED BY: CHRISTINE Garcia
DATE/TIME OF REQUEST: 04/02/25
DATE/TIME OF CONSULTATION: 04/02/25
Reason for Consultation: Dizziness
History of Present Illness:
This is a 40-year-old right-handed female who has presented to the hospital on 03/31/25 with report of dizziness, nausea, and vomiting. Patient has a history of migraine without aura associated with nausea, occasional vomiting, and photophobia.
typically associated with her menses. She takes rizatriptan for relief, prescribed by her PCP. She is not followed by a Neurologist.
Patient reports that two months ago her left ear hearing became muffled and felt as if water was in it. She reports taking three antibiotics, and finally about two weeks ago her symptoms resolved. Five days ago on 03/28/25 at night she reports a
sudden onset of a dizzy sensation which she describes as 'off balance.' She has been unable to walk normally due to falling to her right side. At that time she also notes developing diffuse facial tingling that resolved after 15 minutes. She also
reports having a headache, nausea, vomiting, and difficulty getting words out. She reports that her symptoms improve to only 10% severity when she lies down and are worse when she moves at all. Her symptoms were severe initially prompting her to go
to the ER for evaluation on 03/29/25. She was ultimately discharged home with a Medrol dose pack and ondansetron. She reports that she also took a rizatriptan that day. Her symptoms did not improve, and she reports vomiting daily and has been unable
to keep food down, prompting her to return to the ER on 03/31/25. CT head was obtained on 03/31/25 and is negative for any acute abnormalities. She reports ongoing symptoms but has some relief of nausea/vomiting with IV ondansetron. Her headache has
resolved. She notes photophobia but that she typically has that. She also reports feeling like she can't take deep breaths. Her right side still feels weak and she feels like she can't do fine motor tasks with her right hand. She is taking aspirin
81mg daily for Factor V Leiden.
Past Medical History: Factor V Leiden, migraine without aura, anxiety, depression
Surgical History: Thyroid cyst excision, ectopic
Family History: Reviewed and noncontributory.
Social History: Former smoker. Occasional alcohol. Denies illicit drug use.
Allergies: See below.
Home Medications: See below.
Review of Symptoms:
Patient denies any fever, headache, chest pain, shortness of breath, GI or symptoms.
�Per the HPI.�All systems are reviewed negative except above.
Physical Exam:
The patient is afebrile, abdomen is nondistended, breathing is unlabored, skin is warm and dry, no edema.
Neurologic Examination:
The patient is awake, alert and oriented x 3. She is able to follow commands and answer questions appropriately. There is no aphasia or dysarthria. On cranial nerve assessment, pupils are 3 mm bilateral, round and reactive to light and
accommodation. Visual ambrose are full. Extraocular movements are intact. No nystagmus. Facial sensations are intact and bilaterally symmetrical, there is no facial asymmetry. Hearing is intact bilaterally to normal conversation volume. Tongue palate
and uvula are midline. Sternocleidomastoid strengths are full bilaterally. Motor strengths are 5/5 bilateral upper and lower extremities on medical research [place] scale. There is no drift or involuntary movement noted. Deep tendon reflexes are 1+
bilateral upper and lower extremities and Babinski is absent bilaterally. There was no extinction noted on double simultaneous stimulation. Coordination is intact by finger to nose bilaterally. LUE satellites around RU.
Lab Results: See below.
Neuro Imaging:
1. CT Head 03/31/25: Normal pre and postcontrast CT of the head.
Differentials for the patient's presentation include:
1. Dizziness associated with headache, right-sided weakness, speech difficulty, and nausea/vomiting; uncertain etiology. Differential diagnosis includes a structural brain abnormality given Factor V Leiden, vertiginous migraine, structural ear
abnormality.
2. Recent ear infection.
Patient has the following risk factors for their symptoms: Hx migraines, Factor V Leiden
IV Tenecteplase/IAT candidacy: Not a candidate due to outside of the time window.
Recommendations:
-MRI brain/internal auditory canals w/ and w/o contrast pending.
-Continue home aspirin 81mg daily.
-Supportive care with prednisone, ondansetron.
-Checking blood work for metabolic abnormalities.
-Physical therapy evaluation.
-DVT prophylaxis.
Discussed patient care with: Dr. Sharpe, the patient
Vital Signs and Labs
-
Vital Signs and Labs:
Vital Signs
Temp Pulse Resp BP Pulse Ox
97.5 F 59 16 132/80 99
04/02/25 07:00 04/02/25 07:00 04/02/25 07:00 04/02/25 07:00 04/02/25 07:00
Lab Results
04/01/25 07:10
04/01/25 07:10
Sodium 141 mmol/L (135-145) 04/01/25 07:10
Potassium 3.8 mmol/L (3.5-5.1) 04/01/25 07:10
BUN 21 mg/dl (7-17) H 04/01/25 07:10
Glucose 88 mg/dl (70-99) 04/01/25 07:10
Calcium 9.0 mg/dl (8.4-10.2) 04/01/25 07:10
Medications
-
Active Medications
Generic Name Dose Route Start Last Admin
Trade Name Freq PRN Reason Stop Dose Admin
Acetaminophen 650 mg 04/01/25 04:05 04/01/25 04:49
Acetaminophen 325 Mg Tablet PO 04/29/25 04:04 650 mg
Q4HPRN PRN Administration
Mild Pain / Temp > 101
Aspirin 81 mg 04/01/25 08:00 04/02/25 08:14
Aspirin 81 Mg (Enteric Coated) Tablet PO 04/29/25 07:59 81 mg
DAILY CATALINO Administration
Diazepam 2 mg 04/01/25 04:05 04/02/25 11:04
Diazepam 10 Mg/2 Ml Inj IV 04/29/25 04:04 2 mg
Q6HPRN PRN Administration
Dizziness / nausea
Enoxaparin Sodium 40 mg 04/01/25 18:00 04/01/25 18:03
Enoxaparin Sodium 40 Mg/0.4 Ml Syringe SC 04/29/25 17:59 40 mg
QPM CATALINO Administration
Escitalopram Oxalate 10 mg 04/01/25 08:00 04/02/25 08:14
Escitalopram 10 Mg Tablet PO 04/29/25 07:59 10 mg
DAILY CATALINO Administration
Ondansetron HCl 4 mg 04/01/25 04:05 04/01/25 10:52
Ondansetron 4 Mg/2 Ml Vial IV 04/29/25 04:04 4 mg
Q6HPRN PRN Administration
nausea and vomiting
Prednisone 50 mg 04/01/25 12:00 04/02/25 08:14
Prednisone 50 Mg Tablet PO 04/05/25 08:01 50 mg
DAILY CATALINO Administration
Home Medications
�Medication �Instructions �Recorded
methylprednisolone 4 mg tablets in See Rx Instructions PO .COMPLEX 03/29/25
a dose pack (Medrol (Shay)) #21 ea
ondansetron 4 mg disintegrating 4 mg PO Q8H PRN nausea and 03/29/25
tablet vomiting #14 tabs
aspirin 81 mg tablet 81 mg PO DAILY Blood Clot 04/01/25
Prevention/Tx
escitalopram oxalate 10 mg tablet 10 mg PO DAILY Mental 04/01/25
(Lexapro) Health/Anxiety
NIH Stroke Score
Subsequent NIH Scale
Date of Subsequent NIH Scale: 04/02/25
Time of Subsequent NIH Scale: 12:00
NIH Stroke Score
Level of Consciousness: 0 - Alert
LOC Questions: 0-Answers both correctly
LOC Commands: 0-Performs both correctly
Best Horizontal Gaze: 0-Normal
Visual Ambrose: 0=Normal, no visual loss
Facial Palsy: 0=Normal, symmetrical
Motor - Right Arm: 0=No drift 10 seconds
Motor - Left Arm: 0=No drift 10 seconds
Motor - Right Le-No drift 5 seconds
Motor - Left Le-No drift 5 seconds
Limb Ataxia: 1-Present in one limb
Sensation: 0-Normal
Best Language: 0-No aphasia
Dysarthria: 0-Normal
Extinction and Inattention: 0-No abnormality
NIH Total Score:: 1
Modified Warren (mRS) Score
Modified Nanci Scale (mRS): Moderate disability. Requires some help, able to walk unassisted.
Score: 3
Alteplase Contraindication
Inclusion and Exclusion criteria reviewed: Yes
Reasons for NON-Tx with Thrombolytics ABSOLUTE Exclusions: Greater than 4.5 hrs from onset of sxs
IAT Contraindications: NIHSS < 6

Documented by User: Jaylen Sharpe MD 04/02/25 13:46
NIH Stroke Score
NIH Stroke Score
NIH Total Score:: 1
Modified Warren (mRS) Score
Score: 3
Past History
Past History
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 She got tested due to mother with history of factor V deficiency. She is maintained on
low-dose aspirin.) and Other (ectopic)
ED Past Surgical History: Gynecological (Ectopic ) and Other (Thyroid cyst removal)
Patient has exhibited threatening behavior?: No
Social History
Tobacco: Non-smoker
Alcohol: Occasional
Drug: None
Personal:
Living: with family
Employment: Employed
Family History
Family History: Other (Mother with history of factor V deficiency. Patient had routine testing and states she was positive-unclear if she is positive for factor V trait versus deficiency.)
Medications
-
Medications:
Generic Name Dose Route Start Last Admin
Trade Name Freq PRN Reason Stop Dose Admin
Acetaminophen 650 mg 04/01/25 04:05 04/01/25 04:49
Acetaminophen 325 Mg Tablet PO 04/29/25 04:04 650 mg
Q4HPRN PRN Administration
Mild Pain / Temp > 101
Aspirin 81 mg 04/01/25 08:00 04/02/25 08:14
Aspirin 81 Mg (Enteric Coated) Tablet PO 04/29/25 07:59 81 mg
DAILY CATALINO Administration
Diazepam 2 mg 04/01/25 04:05 04/02/25 11:04
Diazepam 10 Mg/2 Ml Inj IV 04/29/25 04:04 2 mg
Q6HPRN PRN Administration
Dizziness / nausea
Enoxaparin Sodium 40 mg 04/01/25 18:00 04/01/25 18:03
Enoxaparin Sodium 40 Mg/0.4 Ml Syringe SC 04/29/25 17:59 40 mg
QPM CATALINO Administration
Escitalopram Oxalate 10 mg 04/01/25 08:00 04/02/25 08:14
Escitalopram 10 Mg Tablet PO 04/29/25 07:59 10 mg
DAILY CATALINO Administration
Ondansetron HCl 4 mg 04/01/25 04:05 04/01/25 10:52
Ondansetron 4 Mg/2 Ml Vial IV 04/29/25 04:04 4 mg
Q6HPRN PRN Administration
nausea and vomiting
Prednisone 50 mg 04/01/25 12:00 04/02/25 08:14
Prednisone 50 Mg Tablet PO 04/05/25 08:01 50 mg
DAILY CATALINO Administration
[2025-04-02 13:20] LABS: ALT (SGPT) 29 U/L (0-35); AST (SGOT) 21 U/L (14-36); Albumin 4.2 g/dl (3.5-5.0); Alkaline Phosphatase 116 U/L (38-126); Blood Urea Nitrogen 13 mg/dl (7-17); Calcium 9.5 mg/dl (8.4-10.2); Carbon Dioxide 26 mmol/L (22-30); Chloride 103 mmol/L (98-107); Estimated Creatinine Clearance 116 ml/min; Glucose 137 mg/dl (70-99); Potassium 3.9 mmol/L (3.5-5.1); Sodium 137 mmol/L (135-145); Total Protein 7.4 g/dl (6.3-8.2); eGFR > 60.00
[2025-04-02 13:27] LABS: D-Dimer 0.28 ug/mlFEU (0.00-0.50)
[2025-04-02 13:30] LABS: C-Reactive Protein < 5.00 mg/L (0.0-10.00)
[2025-04-02 14:05] LABS: Ferritin 31.6 ng/ml (6.24-137)
[2025-04-02 14:36] LABS: Folate 4.8 ng/ml (2.76-20)
[2025-04-02] MEDS: PLAVIX 75 MG PO (15:42)
[2025-04-02 16:56] VITALS: BP 128/91
[2025-04-02] MEDS: LOVENOX 40 MG SC (17:14)
[2025-04-02] MEDS: LIPITOR 40 MG PO (17:14)
[2025-04-02 20:51] LABS: Vitamin B12 255 pg/ml (239-931)
[2025-04-02 22:36] VITALS: BP 112/65
[2025-04-03] VITALS (7 sets, daily range): BP systolic 113–130; BP diastolic 52–89; PULSE 56–103
[2025-04-03 07:44] LABS: VerifyNow Aspirin 494 ARU
[2025-04-03] MEDS: ASPIR LOW (ENTERIC COATED) 81 MG PO (08:17)
[2025-04-03] MEDS: DELTASONE 50 MG PO (08:17)
[2025-04-03] MEDS: PLAVIX 75 MG PO (08:17)
[2025-04-03] MEDS: LEXAPRO 10 MG PO (08:17)
[2025-04-03 08:27] LABS: HDL Cholesterol 23 mg/dl; LDL Cholesterol, Calculated 143 mg/dl; Very Low Density Lipoprotein 35 mg/dl (0-30)
[2025-04-03 08:29] LABS: Glycohemoglobin (HgbA1c) 5.6 % (4.0-5.9)
--- NOTE | 2025-04-03 11:31 | W.PN.HOSP.TC ---
Today's Communication/Plan
-
await neuro input
cont asa/plavix/statin
a1c pending
PT/OT/Speech
prednisone
dc valium
Assessment / Plan
Assessment / Plan
General: in bed, not in distress
HEENT: Moist mucous membranes, PERRLA
Respiratory: Clear; No Wheezes, Rales or Rhonchi
Cardiac: S1/S2 and Regular Rhythm; No Murmur
GI: Soft, Non Tender, Non Distended and Normal Bowel Sounds
Musculoskeletal: No Clubbing, No Cyanosis and No Edema
Neuro: AO x 3, EOMI, Non focal grossly intact, NIH 0
Psych-anxious
A/P: Patient is a 40y F with PMH significant for migraine headaches who presents to ED complaining of persistent dizziness / ataxia and N/V.
Acute onset vertigo / Ataxia likely secondary to vestibular neuritis vs. subacute R cerebellar infarction in setting of Factor V Leiden deficiency
- CT head in the ED was unremarkable. Orthostatic negative. IV fluid discontinued.
- Supportive care with antiemetics, Valium, etc. IVF stopped as orthostatics negative. Monitor po intake
- PT / Vestibular evaluation.
- MRI of the brain noted. CT angiogram negative for acute stenosis or obstruction
- ENT recommends prednisone 50mg taper regimen. DC meclizine and valium as pt stated made her lightheaded.
- valium prn
- Neurology input noted recommending to continue aspirin and Plavix
- aspirin assay noted-494.
- LDL elevated cholestrol. started on statin. A1C pending.
- ECHO noted.
- Await further neuro input. SOLOMON inpatient vs. OP?
- PT/OT/speech evaluation. Continue with stroke scale
Leukocytosis
- Likely due to steroids.
Migraine Headaches
- Patient reports menstrual migraines. Having intermittent headaches
- Monitor for any changes.
Factor V Leiden
DVT Prophylaxis
- No personal h/o VTE.
- Continue daily ASA.
- Lovenox for prophylaxis during hospital stay.
Code Status: Full
PT following
Anticipated Discharge: Within 24 hours
Subjective/Interval History
-
Date of Service: April 03, 2025
states of improvement in dizziness
Objective Data
-
Vital Signs:
Vital Signs
Temp Pulse Resp BP Pulse Ox
98.9 F 56 16 113/73 97
04/03/25 07:40 04/03/25 07:40 04/03/25 07:40 04/03/25 07:40 04/03/25 07:40
I&O
04/02/25 04/03/25 04/04/25
06:59 06:59 06:59
Intake Total 1740 / 1740 1460 / 1460
Balance 1740 / 1740 1460 / 1460
Data Reviewed
-
Total Time Spent with Patient (in minutes): 55
MRI: Report Reviewed by me, Discussed with Patient and Other (There is restricted diffusion within the superior medial right cerebellar hemisphere extending slightly into the right superior cerebellar peduncle. There is associated T2/FLAIR
hyperintense signal. Findings likely represent an acute/subacute infarction within the right superior cerebellar artery )
--- NOTE | 2025-04-03 12:17 | PTOTSP ---
Speech Therapy Evaluation:
Pt with acute risk factor of dysphagia including acute/subacute CVA, however oropharyngeal swallow appeared WFL at bedside. No overt s/sx of aspiration, WBC WNL, pt on room air, and passed 3oz swallow screen. Pt also presented with minimally reduced
rate of speech. Pt reported some difficulty getting words out. Pt would benefit from comprehensive language assessment in upcoming sessions.
Recommend:
1. Regular solids and thin liquids
2. Meds as tolerated
3. General aspiration precautions
4. No dysphagia tx warranted, DIGITAL ARTIST to follow for further language assessment
[2025-04-03] MEDS: LOVENOX 40 MG SC (17:55)
[2025-04-03] MEDS: LIPITOR 40 MG PO (17:55)
--- NOTE | 2025-04-03 19:40 | PTCARENOTE ---
Patient stood at each position for 4 minutes for both Orthostatic blood pressures at 0700 and 1900
[2025-04-04 03:00] VITALS: BP 122/74
[2025-04-04 07:00] VITALS: BP 125/81
[2025-04-04] MEDS: DELTASONE 50 MG PO (07:55)
[2025-04-04] MEDS: ASPIR LOW (ENTERIC COATED) 81 MG PO (07:55)
[2025-04-04] MEDS: LEXAPRO 10 MG PO (07:55)
[2025-04-04] MEDS: PLAVIX 75 MG PO (07:55)
[2025-04-04] MEDS: VITAMIN B-12 1000 MCG PO (07:55)
--- NOTE | 2025-04-04 10:11 | CON.CAR ---
Consultation
Consultation Request
Date/Time Consultation Requested: April 04, 2025
Date/Time Consultation Performed: April 04, 2025
Requesting Provider: Hospitalist
Performing Provider: Rashad
Reason for Consultation: Cerebellar stroke
Medical History
-
Chief Complaint: Dizziness vertigo
History of Present Illness:
40-year-old female who presents with a cerebellar stroke. Acute�subacute on imaging most notably on MRI and head and neck CTA. No large vessel occlusion or stenosis but in the region of her cerebellar stroke the arterial vessel looks diminutive or
occluded. She carries a history of factor V Leiden, her mother had venous clotting issues. The patient has not had prior blood clot in her history. No prior cardiac testing. Echocardiogram here demonstrates normal ejection fraction without any
evidence for intracardiac shunt. She denies chest pain pressure dyspnea dyspnea duration or palpitations
Past Medical History
Past Medical History: Other (Stroke)
Social History
Tobacco: Non-Smoker
Alcohol: None
Drug: None
Personal: Other
Living: With Family
Employment: Other
Family History
Family History: Reviewed & Not Pertinent
Allergies / Home Medications
Allergy/AdvReac Type Severity Reaction Status Date / Time
ciprofloxacin (From Cipro) Allergy Unknown Verified 03/29/25 18:14
clindamycin Allergy Unknown Verified 03/29/25 18:14
codeine Allergy Unknown Verified 03/29/25 18:14
metronidazole (From Metrogel) Allergy Unknown Verified 03/29/25 18:14
morphine Allergy Unknown Verified 03/29/25 18:14
Penicillins Allergy Unknown Verified 03/29/25 18:14
�Medication �Instructions �Recorded �Confirmed �Type
methylprednisolone 4 mg tablets in See Rx Instructions PO .COMPLEX 03/29/25 04/01/25 Rx
a dose pack (Medrol (Shay)) #21 ea
ondansetron 4 mg disintegrating 4 mg PO Q8H PRN nausea and 03/29/25 04/01/25 Rx
tablet vomiting #14 tabs
aspirin 81 mg tablet 81 mg PO DAILY Blood Clot 04/01/25 04/01/25 History
Prevention/Tx
escitalopram oxalate 10 mg tablet 10 mg PO DAILY Mental 04/01/25 04/01/25 History
(Lexapro) Health/Anxiety
Review of Systems
-
All other systems: Negative unless noted
Cardiac: No Symptoms
Physical Exam
Vital Signs
Temp Pulse Resp BP Pulse Ox
97.5 F 63 14 125/81 100
04/04/25 07:00 04/04/25 07:00 04/04/25 07:00 04/04/25 07:00 04/04/25 07:00
Lab Results
04/01/25 07:10
04/02/25 12:21
Physical Exam
General: Well Developed, Well Nourished and No Apparent Distress
HEENT: Normocephalic and Anicteric
Respiratory: Clear
Cardiac: S1/S2 and Regular Rhythm
Breast: Deferred by me
GI: Soft, Non Tender and Non Distended
Rectal: Deferred by Provider
Musculoskeletal: No Clubbing and No Cyanosis
Skin: Warm and Dry
Neuro: Awake, Alert and Oriented
Hematologic/Lymphatic: No Lymphadenopathy
Psych: Calm
Impression / Plan
-
Impression:
Cerebellar stroke
Factor V Leiden
Dizziness
Vertigo
Anxiety disorder
Recommendations:
I have no objection to performing SOLOMON to make sure she has no intracardiac shunt such as PFO although transthoracic echocardiogram did not reveal an intracardiac shunt
Given her factor V Leiden I would elicit opinions from neurology and/or hematology regarding DAPT therapy versus lifelong oral anticoagulation
Monitoring for atrial fibrillation can be formed either with ambulatory monitor or ILR implant
If the plan is for DAPT therapy we can perform ILR implant at time of SOLOMON which I placed on the schedule for April 05, 2025 and put in n.p.o. order
- If neurology and/or hematology recommends lifelong oral anticoagulation then ILR implant to monitor for atrial fibrillation would not alter therapy. As such if lifelong oral anticoagulation is recommended we can consider outpatient 14-day
ambulatory rhythm monitor instead
Patient is agreeable to plan and will monitor consultants input. Communicated with neurology and internal medicine team.
Data Reviewed
-
EKG: Tracing Personally Visualized and interpreted
Radiology: Image Personally Visualized and interpreted
Medical Tests (Nuc Med, Echo etc): Image Personally Visualized and interpreted
Labs: Labs Reviewed by me
Old Records: Reviewed
--- NOTE | 2025-04-04 11:15 | W.PN.NEURO.1 ---
Today's Communication / Plan
-
Hematology consult, pending decision on anticoagulation (apixiban 5 mg BID), if agreeable, start AC and hold aspirin/clopidogrel, otherwise continue aspirin/clopidogrel for now. Cardiology evaluation with consideration of SOLOMON.
Neuro Assessment/Plan
Assessment
Anni Gross is a 40 yo F with PMH Factor V Leiden mutation , migraines, initially presenting with acute dizziness, migrainous headache, facial dysasthesia, and ataxia, with gait leaning towards the right, found to have acute infarct in the right
cerebellum and middle cerebellar peduncle. 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 Stroke workup relatively unremarkable apart from elevated LDL, notably normal D-dimer.
Etiology of stroke remains idiopathic at the current time, however given history of Factor V Leiden mutation, venous paradoxical embolism though patent foramen ovale remains a possibility, although rare. Prior studies have been mixed in
recommendations for empiric initiation of anticoagulation in patients with Factor V mutation and stroke:
2020 AHA/ASA Guide for Stroke Prevention 'Thrombophilic states such as...factor V Leiden have been associated with higher stroke risk in selected populations without
stroke, especially among people with a PFO. The risk of stroke recurrence among stroke survivors with thrombophilic traits is less well established.�Furthermore, although individuals
who carry 1 of these disease traits may be considered hypercoagulable, the ideal treatment (antiplatelet versus anticoagulation) remains unknown'
Overall,unlike clear evidence for DOACS in the management of venous thromboemobli in patients with Factor V Leiden, management for secondary stroke prevention does not have robust data, and should be considered on a case by case basis. She
personally denies history of DVT or PE. Evidence of patent foramen ovale would significantly increase the likelihood of paradoxical embolism as a potential stroke mechanism and therefore would recommend SOLOMON for further evaluation to guide
management. Would appreciate additional recommendations from hematology team in terms of risk stratification with known mutation.
Alternative stroke mechanisms include cardioembolic from covert atrial fibrillation (consider ILR vs ambulatory umbrella repairer); unlikely atheroembolic. Other hypercoagulable state less likely given normal D-dimer although would appreciate
hematology input for further evaluation.
Plan
- hematology consult
- consideration of anticoagulation (and anticipated duration) for FVL and recent stroke.
- any further diagnostic testing that would assist in decision making (e.g. lower and upper extremity dopplers, repeat FVL or other hypercoagulability testing)
- if decision is made for start of anticoagulation
- would favor apixiban 5mg BID
- can start 04/04 and continue for at least until outpatient followup (duration per hematology)
- discontinue aspirin and clopidogrel unless indicated separately from a hematology and/or cardiology standpoint
- if started on anticoagulation and otherwise stable exam, can continue to monitor clinically; STAT head CT for any change in exam
- if decision is made to hold on anticoagulation
- continue aspirin 81 mg and clopidogrel 75 mg daily
- appreciate cardiology consultation, strong consideration of SOLOMON to evaluate for PFO, and either implantable loop recorder or ambulatory umbrella repairer, especially if duration of anticoagulation is unclear
- continue atorvastatin 40 mg
- BP goal normotension
- PT/OT/PMR
- migraine management
- counseled to avoid tobacco and oral contraceptive use, as well as long periods of sedentary behavior (e.g. flights)
- outpatient stroke clinic followup
Subjective/Objective
Subjective Data
Date of Service: April 04, 2025
- MRI with acute infarct in the right cerebellum and medial right cerebellar peduncle.
- Continued on aspirin 81 mg and clopidogrel 75 mg daily
- Patient reports near resolution of her symptoms, although notes mild right ataxia and diffuse facial parasthesia.
Objective Data
Vital Signs
Temp Pulse Resp BP Pulse Ox
36.4 C 63 14 125/81 100
04/04/25 07:00 04/04/25 07:00 04/04/25 07:00 04/04/25 07:00 04/04/25 07:00
Lab Results
04/01/25 07:10
04/02/25 12:21
Hgb A1c 5.6, D-dimer 0.28, ESR 2, LDL 143, TSH, B12 wnl
Sodium 137 mmol/L (135-145) 04/02/25 12:21
Potassium 3.9 mmol/L (3.5-5.1) 04/02/25 12:21
BUN 13 mg/dl (7-17) 04/02/25 12:21
Glucose 137 mg/dl (70-99) H 04/02/25 12:21
Calcium 9.5 mg/dl (8.4-10.2) 04/02/25 12:21
LDL Cholesterol, Calc 143 mg/dl 04/03/25 07:08
Vitamin B12 255 pg/ml (239-931) 04/02/25 12:21
Patient Allergies
ciprofloxacin (From Cipro) Allergy (Verified 03/29/25 18:14)
Unknown
clindamycin Allergy (Verified 03/29/25 18:14)
Unknown
codeine Allergy (Verified 03/29/25 18:14)
Unknown
metronidazole (From Metrogel) Allergy (Verified 03/29/25 18:14)
Unknown
morphine Allergy (Verified 03/29/25 18:14)
Unknown
Penicillins Allergy (Verified 03/29/25 18:14)
Unknown
MRI brain 04/02/25 - acute infarct in the right cerebellum, right middle cerebral peduncle
Review of Systems
-
All other systems: Reviewed and negative
Physical Exam
-
NIHSS 1 for right ataxia
General: Well Developed and Well Nourished
Eyes: PERRLA
HEENT: Normocephalic and Atraumatic
Extended Neurological Exam
Attention Span & Concentration: Awake, Alert and Interactive
Tremor: Hand Tremor Absent
Involuntary Movement: None
Speech: Quality Unremarkable and Quantity Unremarkable
Cranial Nerve II: Left Eye: Visual Ambrose Intact
Cranial Nerve II: Right Eye: Visual Ambrose Intact
Cranial Nerves III, IV, : Extraocular Movement: Extraocular Movement Full in all Directions
Cranial Nerve V: Facial Sensation: Intact to Light Touch
Cranial Nerve VII: Facial Symmetry: Normal Facial Symmetry
Cranial Nerve VIII: Hearing: Unremarkable Hearing to Normal Conversational Volume
Cranial Nerves IX, X: Palate Movement: Palate Elevation Symmetric
Cranial Nerve XI: Shoulder Shrug: Unremarkable
Cranial Nerve XII: Tongue Protusion: Midline
Muscle Strength, Overall: Full Throughout
Muscle Bulk & Tone: Bulk Unremarkable
Pronator Drift: No Drift in Upper Extremities and Drift in Left Lower Extremity
Touch Sensation: Testing in Upper Extremities and Unremarkable
Coordination: Other (Dysmetria on right with finger to nose )
Data Reviewed
-
CT-A: Image Reviewed (CTAH&N 04/02: Left vertberal artery stenosis, right superior cerebellar artery stenosis )
MRI Head: Image Reviewed (MRI brain without contrast 04/02: Acute infarct in the right cerebellum and middle cerebellar peduncle )
Echocardiogram: Report Reviewed (1. Ejection fraction is 61% by volumetric assesment. 6. There is no obvious intra atrial shunting noted.)
[2025-04-04 15:00] VITALS: BP 131/87; BP 132/88; BP 134/96; PULSE 83; PULSE 89; PULSE 97
[2025-04-04 16:09] VITALS: BP 126/87; PULSE 98; O2SAT 95
--- NOTE | 2025-04-04 16:13 | W.PN.HOSP.TC ---
Today's Communication/Plan
-
DOAC
NPO PMN for SOLOMON
OOB/PT
Assessment / Plan
Assessment / Plan
General: sitting in bed,
HEENT: Moist mucous membranes, PERRLA
Respiratory: Clear; No Wheezes, Rales or Rhonchi
Cardiac: S1/S2 and Regular Rhythm; No Murmur
GI: Soft, Non Tender, Non Distended and Normal Bowel Sounds
Musculoskeletal: No Clubbing, No Cyanosis and No Edema
Neuro: AO x 3, EOMI, Non focal grossly intact, NIH 0
Psych-calm
A/P: Patient is a 40y F with PMH significant for migraine headaches who presents to ED complaining of persistent dizziness / ataxia and N/V.
Acute onset vertigo / Ataxia likely secondary to subacute R cerebellar infarction in setting of Factor V Leiden deficiency
- CT head in the ED was unremarkable.
- Supportive care with antiemetics. s/p aggressive IVF resuscitation. Orthostatics were checked and found to be negative.
- PT / Vestibular evaluation.
- MRI of the brain noted. CT angiogram negative for acute stenosis or obstruction
- ENT recommends prednisone taper regimen. Starting saturday can decrease 10mg q24h and stop it. Symptoms seems to be improving.
- DC meclizine and valium as pt stated made her lightheaded.
- aspirin assay noted-494.
- LDL elevated cholesterol. started on statin. A1C 5.6.
- TTE negative for PFO.
- PT/OT/speech evaluation. okay for regular diet Continue with NIHSS
- d/w with neurology/cardiology-plan for potential SOLOMON in am. Defer ILR vs. holter monitor to cards.
- On aspirin/plavix currently. However with V Leiden deficiency pt may need DOAC. Duration unknown. Heme input requested as per d/w with neurology/cardiology.
Leukocytosis
- Likely due to steroids.
Migraine Headaches
- Patient reports menstrual migraines. Having intermittent headaches
- Monitor for any changes.
Factor V Leiden
DVT Prophylaxis
- No personal h/o VTE.
.
Code Status: Full
DVT ppx-Eliquis
PT/OT-Op therapy
Anticipated Discharge: 24 - 48 hours
Subjective/Interval History
-
Date of Service: April 04, 2025
Pt states she is starting to feel better
remains with weakness on R side which she states of being as slow
walking with walker
Objective Data
-
Vital Signs:
Vital Signs
Temp Pulse Resp BP Pulse Ox
97.5 F 63 14 125/81 100
04/04/25 07:00 04/04/25 07:00 04/04/25 07:00 04/04/25 07:00 04/04/25 07:00
I&O
04/03/25 04/04/25 04/05/25
06:59 06:59 06:59
Intake Total 1460 / 1460 1640 / 1640
Balance 1460 / 1460 1640 / 1640
[2025-04-04] MEDS: LIPITOR 40 MG PO (16:46)
[2025-04-04 19:05] VITALS: BP 111/66; BP 130/86; BP 133/86; PULSE 83; PULSE 87; PULSE 92
[2025-04-04] MEDS: ELIQUIS 5 MG PO (20:09)
[2025-04-04 23:00] VITALS: BP 118/76
[2025-04-05 04:07] VITALS: BP 110/68
[2025-04-05 07:13] LABS: Hematocrit 41.8 % (37.0-47.0); Hemoglobin 14.4 g/dL (12.0-16.0); Mean Corp Hgb Conc. 34.4 g/dL (33.0-37.0); Mean Corpuscular Volume 88.4 fL (81.0-99.0); Nucleated Red Blood Cells % 0 %; Platelet Count 407 10^3/uL (130-400); Red Cell Dist. Width 12.1 % (11.5-14.5)
[2025-04-05 07:17] LABS: INR 1.01; PT 13.7 Sec (11.4-14.6)
[2025-04-05 07:18] LABS: APTT 29.9 Sec (23.4-35.0)
[2025-04-05 07:38] VITALS: BP 111/75
[2025-04-05 07:39] VITALS: BP 111/75; BP 118/76; BP 118/80; PULSE 67; PULSE 70; PULSE 75
[2025-04-05 07:44] LABS: Blood Urea Nitrogen 16 mg/dl (7-17); Calcium 9.2 mg/dl (8.4-10.2); Carbon Dioxide 28 mmol/L (22-30); Chloride 105 mmol/L (98-107); Estimated Creatinine Clearance 116 ml/min; Glucose 94 mg/dl (70-99); Potassium 3.9 mmol/L (3.5-5.1); Sodium 138 mmol/L (135-145); eGFR > 60.00
--- NOTE | 2025-04-05 08:21 | W.PN.HOSP.TC ---
Today's Communication/Plan
-
discharge
Assessment / Plan
Assessment / Plan
Physical Exam
General: no acute distress, sitting up comfortably in bed.
HEENT: Moist mucous membranes, PERRLA
Respiratory: Clear; No Wheezes, Rales or Rhonchi
Cardiac: S1/S2 and Regular Rhythm; No Murmur
GI: Soft, Non Tender, Non Distended and Normal Bowel Sounds
Musculoskeletal: No Clubbing, No Cyanosis and No Edema
Neuro: AO x 3 conversant coherent
Psych-calm
A/P: Patient is a 40y F with PMH significant for migraine headaches who presents to ED complaining of persistent dizziness / ataxia and N/V.
Acute onset vertigo / Ataxia likely secondary to subacute R cerebellar infarction
Hx Factor V Leiden deficiency
- Initial CT head unremarkable.
- Supportive care with antiemetics prn. IVF support completed. Orthostatics negative
- PT eval appreciated outpt therapy recommended
- MRI brain noted. CT angiogram negative for acute stenosis or obstruction
- ENT eval appreciated steroid taper. Starting 04/05 decrease prednisone 10mg every 24 hr till complete. Symptoms improved.
- DC meclizine and valium as pt stated made her lightheaded.
- aspirin assay noted-494.
- LDL elevated cholesterol. started on statin. A1C 5.6.
- TTE negative for PFO.
- speech eval appreciated okay for regular diet
- neurology/cardiology eval appreciated- SOLOMON Saturday also noted no PFO. Holter Monitor placed prior to dc
- aspirin/plavix switched to Eliquis
-Hematology eval appreciated, antiphospholipid panel drawn prior to dc, outpt follow up recommended
Mild Leukocytosis
- Likely due to steroids.
Hx Migraine Headaches
Code Status: Full
DVT ppx-Eliquis
Medically stable for discharge home with outpatient follow up recommendations.
Discussed with patient and patient's Pat
Total Time Preparing Discharge __40 minutes including examination of the patient, summary of the hospital stay, instructions for continuing care to all relevant caregivers; and preparation of discharge records, prescriptions, and referral
forms if necessary.
Anticipated Discharge: Today
Subjective/Interval History
-
Date of Service: April 05, 2025
Seen and examined at bedside in no acute distress. Overall reports feeling well. Denies new acute issues at this time. Eager to go home.
Objective Data
-
Labs:
Laboratory Results
04/05/25
06:48
WBC 13.3 H
Hgb 14.4
Hct 41.8
Plt Count 407 H
PT 13.7
INR 1.01
APTT 29.9
Sodium 138
Potassium 3.9
Chloride 105
Carbon Dioxide 28
BUN 16
Creatinine 0.8
Glucose 94
Calcium 9.2
Vital Signs:
Vital Signs
Temp Pulse Resp BP Pulse Ox
97.8 F 65 16 110/68 97
04/05/25 04:07 04/05/25 04:07 04/05/25 04:07 04/05/25 04:07 04/05/25 04:07
I&O
04/04/25 04/05/25 04/06/25
06:59 06:59 06:59
Intake Total 1640 / 1640 360 / 360
Balance 1640 / 1640 360 / 360
[2025-04-05] MEDS: LEXAPRO 10 MG PO (08:38)
[2025-04-05] MEDS: ELIQUIS 5 MG PO ×2 (08:38→18:37)
[2025-04-05] MEDS: DELTASONE 50 MG PO (08:39)
[2025-04-05] MEDS: VITAMIN B-12 1000 MCG PO (08:39)
--- NOTE | 2025-04-05 10:29 | W.PN.CARDCBS ---
Today's Communication / Plan
-
SOLOMON with normal function and no PFO and negative bubble study.
14 day RhythmStar monitor to be placed today
Outpt follow up with cardiology.
Given pt is on Eliquis, ILR implant would not size changer and therefore was canceled.
Appreciate neuro input.
Hematology eval as per neuro for Factor V Leiden.
Left detailed message for regarding SOLOMON findings.
Please recall if needed.
Impression / Plan
-
.
Impression:
Cerebellar stroke
Factor V Leiden
Dizziness
Vertigo
Anxiety disorder
Former smoker
Echo Apr 02 2025: EF 61% with no significant valve disease.
There is no obvious intra atrial shunting.
Plan:
SOLOMON with normal function and no PFO and negative bubble study.
14 day RhythmStar monitor to be placed today
Outpt follow up with cardiology.
Given pt is on Eliquis, ILR implant would not size changer and therefore was canceled.
Appreciate neuro input.
Hematology eval as per neuro for Factor V Leiden.
Left detailed message for regarding SOLOMON findings.
Please recall if needed.
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
Subjective
Date of Service: April 05, 2025
Pt seen and examined. No complaints. No chest pain or shortness of breath.
Objective
Labs:
04/05/25 06:48
04/05/25 06:48
Labs
Hgb 14.4 g/dL (12.0-16.0) 04/05/25 06:48
Hct 41.8 % (37.0-47.0) 04/05/25 06:48
Plt Count 407 10^3/uL (130-400) H 04/05/25 06:48
PT 13.7 Sec (11.4-14.6) 04/05/25 06:48
INR 1.01 04/05/25 06:48
APTT 29.9 Sec (23.4-35.0) 04/05/25 06:48
Sodium 138 mmol/L (135-145) 04/05/25 06:48
Potassium 3.9 mmol/L (3.5-5.1) 04/05/25 06:48
BUN 16 mg/dl (7-17) 04/05/25 06:48
Creatinine 0.8 mg/dL (0.6-1.0) 04/05/25 06:48
Glucose 94 mg/dl (70-99) 04/05/25 06:48
Vital Signs and I&O:
Vital Signs
Temp Pulse Resp BP Pulse Ox
97.9 F 67 16 111/75 97
04/05/25 07:38 04/05/25 07:38 04/05/25 07:38 04/05/25 07:38 04/05/25 07:38
Vital Signs
Temp Pulse Resp BP Pulse Ox
97.9 F 67 16 111/75 97
04/05/25 07:38 04/05/25 07:38 04/05/25 07:38 04/05/25 07:38 04/05/25 07:38
Intake & Output
04/03/25 04/04/25 04/05/25 04/06/25
06:59 06:59 06:59 06:59
Intake Total 1460 / 1460 1640 / 1640 360 / 360
Balance 1460 / 1460 1640 / 1640 360 / 360
Physical Exam
Physical Exam
General: No acute distress, AAOX3
Neck: Negative JVD
Heart: Regular, Negative S3 positive S1/S2, Negative S4, No murmur
Lungs: CTA b/l, negative wheezes/rales/rhonchi
Abd: Positive BS, NT/ND, neg rebound/rigidity/guarding
Ext: Negative cyanosis/clubbing/edema
Neuro: nonfocal
--- NOTE | 2025-04-05 11:33 | CM ---
Addendum entered by Junior Bah 04/05/25 13:01:
Speech therapy indicated as well
Original Note:
CM consulted for Eliquis coverage
Patient has [employer] rx plan. Per plan, Eliquis is covered. For 30 day supply, $10 co pay. For 90 day mail order, co pay is $10 as well
Update to cardiology
PT recommending OP PT, currently determining if patient would benefit from RW or a cane
Plan: Home, OP PT
[2025-04-05 11:55] VITALS: BP 124/77
--- NOTE | 2025-04-05 15:32 | W.PN.NEURO.1 ---
Today's Communication / Plan
-
A transesophageal echo was done today that showed a left ventricular ejection fraction of 55 to 60% and there was no evidence of shunt/PFO.
MRI of the brain showed a acute stroke in the right cerebellar hemisphere extending slightly into the right superior cerebellar peduncle.
The plan is to continue Eliquis 5 mg twice daily.
Follow-up with hematology for factor V Leiden.
Follow-up in neurology clinic in 2 weeks as outpatient.
Subjective/Objective
Subjective Data
Date of Service: April 05, 2025
The patient was seen and examined today.
Anni Gross is a 40 yo F with PMH Factor V Leiden mutation , migraines, initially presenting with acute dizziness, migrainous headache, facial dysasthesia, and ataxia, with gait leaning towards the right, found to have acute infarct in the right
cerebellum and middle cerebellar peduncle. 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
A transesophageal echo was done today that showed a left ventricular ejection fraction of 55 to 60% and there was no evidence of shunt/PFO.
MRI of the brain showed a acute stroke in the right cerebellar hemisphere extending slightly into the right superior cerebellar peduncle.
The plan is to continue Eliquis 5 mg twice daily.
Follow-up with hematology for factor V Leiden.
Follow-up in neurology clinic in 2 weeks as outpatient.
Objective Data
Vital Signs
Temp Pulse Resp BP Pulse Ox
37.0 C 61 16 124/77 100
04/05/25 11:55 04/05/25 11:55 04/05/25 11:55 04/05/25 11:55 04/05/25 11:55
Lab Results
04/05/25 06:48
04/05/25 06:48
PT 13.7 Sec (11.4-14.6) 04/05/25 06:48
INR 1.01 04/05/25 06:48
APTT 29.9 Sec (23.4-35.0) 04/05/25 06:48
Sodium 138 mmol/L (135-145) 04/05/25 06:48
Potassium 3.9 mmol/L (3.5-5.1) 04/05/25 06:48
BUN 16 mg/dl (7-17) 04/05/25 06:48
Glucose 94 mg/dl (70-99) 04/05/25 06:48
Calcium 9.2 mg/dl (8.4-10.2) 04/05/25 06:48
LDL Cholesterol, Calc 143 mg/dl 04/03/25 07:08
Vitamin B12 255 pg/ml (239-931) 04/02/25 12:21
Patient Allergies
ciprofloxacin (From Cipro) Allergy (Verified 03/29/25 18:14)
Unknown
clindamycin Allergy (Verified 03/29/25 18:14)
Unknown
codeine Allergy (Verified 03/29/25 18:14)
Unknown
metronidazole (From Metrogel) Allergy (Verified 03/29/25 18:14)
Unknown
morphine Allergy (Verified 03/29/25 18:14)
Unknown
Penicillins Allergy (Verified 03/29/25 18:14)
Unknown
Vital Signs and Labs
-
Vital Signs and Labs:
Vital Signs
Temp Pulse Resp BP Pulse Ox
36.4 C 86 16 133/90 96
04/05/25 19:00 04/05/25 19:00 04/05/25 19:00 04/05/25 19:00 04/05/25 19:00
Lab Results
04/05/25 06:48
04/05/25 06:48
PT 13.7 Sec (11.4-14.6) 04/05/25 06:48
INR 1.01 04/05/25 06:48
APTT 29.9 Sec (23.4-35.0) 04/05/25 06:48
Sodium 138 mmol/L (135-145) 04/05/25 06:48
Potassium 3.9 mmol/L (3.5-5.1) 04/05/25 06:48
BUN 16 mg/dl (7-17) 04/05/25 06:48
Glucose 94 mg/dl (70-99) 04/05/25 06:48
Calcium 9.2 mg/dl (8.4-10.2) 04/05/25 06:48
LDL Cholesterol, Calc 143 mg/dl 04/03/25 07:08
Vitamin B12 255 pg/ml (239-931) 04/02/25 12:21
Medications
-
Home Medications
�Medication �Instructions �Recorded
ondansetron 4 mg disintegrating 4 mg PO Q8H PRN nausea and 03/29/25
tablet vomiting #14 tabs
escitalopram oxalate 10 mg tablet 10 mg PO DAILY Mental 04/01/25
(Lexapro) Health/Anxiety
apixaban 5 mg tablet (Eliquis) 5 mg PO BID #60 tabs 04/05/25
atorvastatin 40 mg tablet 40 mg PO QPM #30 tabs 04/05/25
cyanocobalamin (vitamin B-12) 500 1,000 mcg (2 x 500 mcg) PO DAILY 04/05/25
mcg tablet #60 tabs
prednisone 10 mg tablet 10 mg PO DIRECTED #10 tabs 04/05/25
[2025-04-05 15:57] VITALS: BP 124/73
[2025-04-05] MEDS: LIPITOR 40 MG PO (16:55)
[2025-04-05 19:00] VITALS: BP 133/90
--- NOTE | 2025-04-05 19:55 | PTCARENOTE ---
Patient transported via wheelchair from unit to [facility] upon discharge at approx 1954. Patient left with belongings and discharge paperwork.
--- NOTE | 2025-04-05 20:15 | W.DCSUMMARY ---
Discharge Summary
Discharge Data
Date of Admission: 04/03/25
Date of Discharge: 04/05/25
-
Pending Results: Yes (antiphospholipid panel)
Discharge Plan
-
Patient Disposition: Home (Routine Discharge)
Discharge Diagnosis/Procedures: Acute onset vertigo / Ataxia likely secondary to subacute Right cerebellar infarction
History Factor V Leiden deficiency
Hyperlipidemia
Obesity
Condition: Fair
Diet: Low Cholesterol
Activity: As tolerated
Driving Restrictions: As prior to admission
Bathing Restrictions: None
Others Tests: A 14-day heart monitor is being applied before you leave the hospital, when the monitoring period has finished please remove the monitor and place in the postage paid box and then place in any USPS box for delivery back to the
cardiology office.
Other Services: PT and OT
Activity Restrictions/Additional Instructions:
Follow up with primary care provider in 1 week of discharge, Hematology in 2-4 weeks of discharge, Keep your appointment with Cardiology, and follow up with Neurology in 1 month of discharge.
Atorvastin has been started for stroke risk reduction and for hyperlipidemia
Aspirin discontinued in favor of Eliquis which has been started due to concern hypercoagulable disorder contributing to your stroke
Supplementation prescribed for low vitamin B12 levels.
A short Prednisone taper has been prescribed for Vertigo:
40mg day 1, 30mg day 2, 20mg day 3, 10 mg day 4, then stop
Please take medications as prescribed/recommended and follow up with primary care provider and/or other healthcare provider involved in your care for refills and/or further adjustment to your medication regimen as necessary.
Stand Alone Forms: DC Inst - Implanted Device
Referrals:
Nanda Alonzo MD [Active, Hematology / Oncology] - in two to four weeks
Jaylen Sharpe MD [Active, Neurology] - in one month
Bryan Solorzano MD [Active, Cardiology] - 04/23/25 10:40 am
Referral Note: The cardiology office is placing a 14-day monitor before you are discharged to home, we will call you with the results. You are scheduled to see Dr. Solorzano's physician high school assistant football coach, Tana, at the [place] office on 04/23/2025 at
10:40 AM. If you need to cancel please call [phone].
Guillaume España, DO [Family Provider, [facility]] - in one week
Prescriptions:
New
prednisone 10 mg Tablet
10 mg PO DIRECTED Qty: 10 0RF
Rx Instructions:
40mg day 1, 30mg day 2, 20mg day 3, 10 mg day 4, then stop
atorvastatin 40 mg Tablet
40 mg PO QPM Qty: 30 0RF
cyanocobalamin (vitamin B-12) 500 mcg Tablet
1,000 mcg PO DAILY Qty: 60 0RF
Eliquis 5 mg Tablet
5 mg PO BID Qty: 60 0RF
Continued
ondansetron 4 mg tablet,disintegrating
4 mg PO Q8H PRN (Reason: nausea and vomiting) Qty: 14 0RF
escitalopram oxalate [Lexapro] 10 mg Tablet
10 mg PO DAILY
Discontinued
methylprednisolone [Medrol (Shay)] 4 mg tablets,dose pack
See Rx Instructions .ROUTE .COMPLEX Qty: 21 0RF
Rx Instructions:
for 6 days
aspirin 81 mg Tablet
81 mg PO DAILY
Discharge Orders:
Discharge Patient (As Directed); Ordered 04/05/25
Ordered By: Taran Johnson
Discharge Date and Time
Discharge Date/Time: 04/05/25 19:56
Print Language: [id number]
--- NOTE | 2025-04-05 22:04 | CON.ONC ---
Consultation
-
Date Consultation Requested: 04/04/25
Date Consultation Performed: 04/05/25
Requesting Provider: Thierno Collado MD
Performing Provider: Nanda Chen MD
Reason for Consultation: hx factor V Leiden, now with stroke
Impression
Impression
Acute cerebellar stroke
FVL
Migraine
Plan
Plan
FVL generally not associated with arterial clots, only venous. No PFO to suggest paradoxical embolization.
Antiphospholipid antibody panel to be drawn prior to D/C.
Okay for D/C.
Eliquis for now while awaiting APLA panel, we will see her in follow up.
With stroke occurring on baby aspirin, reasonable to keep her on anticoagulation even if APLA panel returns negative.
Thank you for consult. Will arrange outpt follow up.
Patient History
History of Present Illness
Anni Gross is a 40 yo F with PMH Factor V Leiden mutation, migraines, initially presenting with acute dizziness, migrainous headache, facial dysasthesia, and ataxia, with gait leaning towards the right, found by MRI to have acute infarct in the
right cerebellum and middle cerebellar peduncle. 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 Stroke workup relatively unremarkable apart from elevated LDL, notably normal D-dimer. She underwent ECHO
with bubble study with no evidence of PFO. Decision has been made to start apixaban and d/c ASA/plavix due to FVL hx. Pt has not zheng a venoux blood clot. She had been taking ASA for prophylaxis as outpt. Not on OCPs and does not smoke. She
reports continued difficulty with R hand coordination in activities like texting, writing.
Past-Medical/Surgical History
Past Medical History
Migraine Headaches (menstrual)
Obesity
Anxiety / Depression
Factor V Leiden - No personal history of VTE
Past Surgical History
Thyroid Cyst Excision
Ectopic
Social History
Tobacco: Non-smoker
Alcohol: Occasional
Drug: None
Family History
Family History: Other (Mother: Factor V Leiden / VTE)
Patient Medication
�Medication �Instructions �Recorded �Confirmed �Last Taken �Type
ondansetron 4 mg disintegrating 4 mg PO Q8H PRN nausea and 03/29/25 04/01/25 04/01/25 Rx
tablet vomiting #14 tabs
escitalopram oxalate 10 mg tablet 10 mg PO DAILY Mental 04/01/25 04/01/25 Unknown History
(Lexapro) Health/Anxiety
apixaban 5 mg tablet (Eliquis) 5 mg PO BID #60 tabs 04/05/25 Unknown Rx
atorvastatin 40 mg tablet 40 mg PO QPM #30 tabs 04/05/25 Unknown Rx
cyanocobalamin (vitamin B-12) 500 1,000 mcg (2 x 500 mcg) PO DAILY 04/05/25 Unknown Rx
mcg tablet #60 tabs
prednisone 10 mg tablet 10 mg PO DIRECTED #10 tabs 04/05/25 Unknown Rx
Physical Exam
-
Patient appears comfortable, in no acute distress. Appears stated age. Head atraumatic, normocephalic. Sclera anicteric, conjunctiva pink, oropharynx clear. No cervical, supraclavicular or axillary adenopathy. Heart rate and rhythm regular, no
murmurs, rubs or gallops. Lungs clear without rales or rhonchi. No kyphosis. Abdomen soft, non-distended, non-tender, no hepatosplenomegaly. No inguinal adenopathy. Extremities without clubbing, cyanosis or edema. Gait and stature normal. Neurologic
exam grossly non-focal, no hemiplegia.
Labs
Lab Results
WBC 13.3 10^3/uL (4.8-10.8) H 04/05/25 06:48
RBC 4.73 10^6/uL (4.20-5.40) 04/05/25 06:48
Hgb 14.4 g/dL (12.0-16.0) 04/05/25 06:48
Hct 41.8 % (37.0-47.0) 04/05/25 06:48
MCV 88.4 fL (81.0-99.0) 04/05/25 06:48
MCH 30.4 pg (27.0-31.0) 04/05/25 06:48
MCHC 34.4 g/dL (33.0-37.0) 04/05/25 06:48
RDW 12.1 % (11.5-14.5) 04/05/25 06:48
Plt Count 407 10^3/uL (130-400) H 04/05/25 06:48
MPV 9.0 fL (7.4-10.4) 04/05/25 06:48
Abs Immat Gran (auto) 0.1 10^3/uL (0-0.05) H 04/05/25 06:48
Absolute Neuts (auto) 7.8 10^3/uL (1.4-6.5) H 04/05/25 06:48
Absolute Lymphs (auto) 4.3 10^3/uL (1.2-3.4) H 04/05/25 06:48
Absolute Monos (auto) 1.0 10^3/uL (0.1-0.6) H 04/05/25 06:48
Absolute Eos (auto) 0.1 10^3/uL (0-0.7) 04/05/25 06:48
Absolute Basos (auto) 0.1 10^3/uL (0-0.2) 04/05/25 06:48
Immature Gran % 0.6 % (0-0.5) H 04/05/25 06:48
Neutrophils % 58.8 % (42.2-75.2) 04/05/25 06:48
Lymphocytes % 32.1 % (20.5-51.1) 04/05/25 06:48
Monocytes % 7.2 % (1.7-9.3) 04/05/25 06:48
Eosinophils % 0.7 % (0-6) 04/05/25 06:48
Basophils % 0.6 % (0-2) 04/05/25 06:48
Creatinine 0.8 mg/dL (0.6-1.0) 04/05/25 06:48
Vital Signs
Vital Signs
Temp Pulse Resp BP Pulse Ox
97.5 F 86 16 133/90 96
04/05/25 19:00 04/05/25 19:00 04/05/25 19:00 04/05/25 19:00 04/05/25 19:00
== END 2025-04-05 19:56 | disposition home or self-care (01) | DRG 65 ==
LOC: 4 WEST ACU 08:31
PROVIDERS: Hospitalist; Registered Nurse Critical Care Medicine; ADMITTING PHYSICIAN Hospitalist; ATTENDING PHYSICIAN Internal Medicine; CONSULT PHYSICIAN Internal Medicine Cardiovascular Disease; CONSULT PHYSICIAN Psychiatry & Neurology Neurology; CONSULT PHYSICIAN Student in an Organized Health Care Education/Training Program; EMERGENCY PHYSICIAN Emergency Medicine; FAMILY PHYSICIAN Family Medicine; OTHER PHYSICIAN Internal Medicine Hematology & Oncology
DX: I63.541 Cerebral infarction due to unspecified occlusion or stenosis of right cerebellar artery (principal); D68.51 Activated protein C resistance; E78.5 Hyperlipidemia, unspecified; E66.9 Obesity, unspecified; Z88.1 Allergy status to other antibiotic agents; Z88.5 Allergy status to narcotic agent; Z88.0 Allergy status to penicillin; Z79.82 Long term (current) use of aspirin; Z79.01 Long term (current) use of anticoagulants; D72.829 Elevated white blood cell count, unspecified; T38.0X5A Adverse effect of glucocorticoids and synthetic analogues, initial encounter; E04.1 Nontoxic single thyroid nodule; F32.A Depression, unspecified; F41.9 Anxiety disorder, unspecified; Z83.2 Family history of diseases of the blood and blood-forming organs and certain disorders involving the immune mechanism; Z87.891 Personal history of nicotine dependence
CPT/HCPCS: 70470; 70496; 70498; 70553; 80048; 80053; 80061; 82607; 82728; 82746; 83036; 84443; 85025; 85027; 85379; 85576; 85610; 85652; 85730; 86140; 86146; 86147; 92523; 92610; 93005; 93306; 93312; 93320; 93325; 97110; 97112; 97116; 97129; 97162; 97167; 97530; 97535; 99285; A9575; Q9967